=== PATIENT | female | born 1980 | race Caucasian/White ===

== ENCOUNTER 2021-08-23 10:40 | Emergency (ER) | payer BC, OTHER, SELFPAY ==
[2021-08-23 10:47] VITALS: BP 201/123; PULSE 120; RESP 16; TEMP 37; O2SAT 98; BMI 24.1
[2021-08-23 11:50] VITALS: BP 155/87
--- NOTE | 2021-08-23 12:00 | ED.GENADULT ---
HPI - General Adult General Chief complaint: Headache Stated complaint: throbing cramping limbs pain back of head Time Seen by Provider: 08/23/21 11:53 Source: patient Mode of arrival: ambulatory Limitations: no limitations History of Present Illness HPI narrative: 41-year-old female presents to the emergency department with 3 days right-sided neck pain/stiffness, muscle spasms to her right shoulder and right arm and headache. She states it started after she slept in a weird position. She went to urgent care and got diagnosed with muscle spasms was started on cyclobenzaprine 10 mg PO daily which she states didnt help. She states at times she feels like she has a charley horse, and then she feels spasming of the neck, and right arm. She describes her headache as bilateral, tightness, that goes to her neck. She denies nausea, vomiting, vision changes, trauma to the head, chest pain, shortness of breath, abdominal pain. Onset (ago): day(s) (3) Location: head Radiation: non-radiation Severity: moderate Quality: other (tightness) Pain Consistency: constant Relieving factors: none Exacerbating factors: none Associated symptoms: denies other symptoms Treatments prior to arrival: other (cyclobenzaprine 10 mg PO daily ) Related Data Previous Rx's Medication Instructions Recorded diazepam 5 mg tablet (Valium) 5 mg PO BEDTIME PRN #10 tab 08/23/21 naproxen 500 mg tablet 500 mg PO BID #20 tab 08/23/21 Allergies Allergy/AdvReac Type Severity Reaction Status Date / Time No Known Allergies Allergy Unknown Unverified 07/06/20 15:41 Review of Systems Review of Systems: Constitutional : No Weight loss, No Fever, No Chills, No Night Sweats, No Fatigue, No Malaise ENT/Mouth : No Hearing loss, No Ear Pain, No Nasal Congestion, No Sinus Pain, No Hoarseness, No sore throat, No Rhinorrhea, No Swallowing Difficulty Eyes: No Eye Pain, No Swelling, No Redness, No Foreign Body, No Discharge, No Vision Changes Cardiovascular : No Chest Pain, No SOB, No Dyspnea on Exertion, No Orthopnea, No Edema, No Palpitations Respiratory : No Cough, No Sputum, No Wheezing, No Smoke Exposure, No Dyspnea Gastrointestinal : No Nausea, No Vomiting, No Diarrhea, No Constipation, No abdominal Pain, No Hematochezia, No Melena Genitourinary : no irregular bleeding, No Dysuria, No Urinary Frequency, No Hematuria, No Urinary Incontinence, No Urgency, No Flank Pain, No Urinary Flow Changes, No Hesitancy Musculoskeletal : No joint pain, No Myalgias, No Joint Swelling Skin : No Skin Lesions, No rash, + Neck tightness/ muscle spasms Neuro : No Weakness, No Numbness, No Paresthesias, No Loss of Consciousness, No Dizziness, + Headache PMFSH Past Medical History Attestation statement: The following information was validated with the patient. Source: old records reviewed and nursing notes reviewed Social History Social History Advance Directives: No Advance Directives Information Provided: Yes Physical Exam Vital Signs: Vital Signs: Last Vital Signs Temp 98.6 F 08/23/21 10:47 Pulse 120 H 08/23/21 10:47 Resp 16 08/23/21 10:47 BP 155/87 H 08/23/21 11:50 Pulse Ox 98 08/23/21 10:47 Body Mass Index 24.1 vital signs have been reviewed as normal and appeared to be correct. Blood pressure normal. Heart rate normal. Respiration rate normal. Temperature normal. Oxygen saturation normal. Appearance: Alert. Oriented X3. No acute distress. Head: Normal external exam. Normocephalic. Atraumatic. No Romo signs noted. No raccoon eyes noted Eyes: PERRLA. EOMI. Conjunctiva and sclera normal. Eyelids normal. ENT: Pharynx normal. Uvula midline. Moist mucous membranes. No trismus noted. No drooling noted. No muffled voice noted. Neck: Soft full range of motion with pain, no JVD, no cspine tenderness CVS: Heart regular rate and rhythm no murmurs and rubs Respiratory: Breath sounds are clear to auscultation bilaterally. No accessory muscle use noted. Abdomen: Soft nontender no rebound or guarding positive bowel sounds Back: No CVA tenderness. Full range of motion noted. Skin: Skin warm and dry. Normal skin color. Normal skin turgor. No rashes/lesions/lacerations noted. Extremities: No lower extremity edema. Extremities exhibit normal range of motion pain free. Extremities nontender. Neuro: Oriented X 3. No motor deficit. No sensory deficit. Reflexes normal. Medical Decision Making MDM Narrative Medical decision making narrative: 41-year-old female presents to the emergency department with concerns of right-sided neck tightness, spasms her shoulder, and right arm x3 days progressively worsening. She states she was seen in urgent care, was prescribed cyclobenzaprine, and diagnosed with muscle spasms, however, she feels as though this medication has not helped much. She states that this all started after she slept in a weird position. Upon physical examination all extremities exhibit full range of motion, free of pain. Flexion and extension of the neck exhibits full range of motion, slightly painful. No lymphadenopathy. No meningeal signs. Negative Lhermitte sign. Pupils equal round and reactive to light bilaterally. No pain with extraocular movements. Visual biggs by confrontation normal. [id number] normal hand client relations associate strength normal. Gait normal without ataxia. [id number] normal. No focal neuro deficits. No overlying skin changes to extremities. Lungs are clear to auscultation. Normal S1 and S2 free of murmurs. Based on patient history, and physical examination, this is likely neck torticollis. Patient's physical, and history are not consistent with ICH. No focal neuro deficits, her headache is likely a tension-type headache. She reports no red flag symptoms. Patient also denies trauma to the head. Plan at this time is to administer Toradol IM. She will be discharged home on Valium 5 mg MassPat has been reviewed . She has been educated on the diagnosis, she has no questions. She has been encouraged to return to the emergency department with new or worsening symptoms. Discharge Plan Discharge Clinical Impression: Acute torticollis, Muscle spasm of right shoulder Patient Disposition: Home, Self-Care Instructions: Muscle Spasm (ED), Neck Pain (ED) Additional Instructions: Follow-up with your primary care provider Valium is a medication that should help relax her muscles. Start taking cyclobenzaprine. Naproxen as an anti-inflammatory medication as been sent to your pharmacy. Return to the emergency department with new or worsening symptoms. Prescriptions: New diazepam [Valium] 5 mg tablet 5 mg PO BEDTIME PRN (Reason: muscle spasm) Qty: 10 RF: 0 naproxen 500 mg tablet 500 mg PO BID Qty: 20 RF: 0 Referrals: Terrance Stephenson MD [Primary Care Provider] - 2 days Stand Alone Forms: Work/School Release
[2021-08-23] MEDS: Ketorolac Tromethamine 15 MG/ML VIAL 30 MG IM (12:09)
== END 2021-08-23 12:21 | disposition home or self-care (01) ==
PROVIDERS: Emergency Provider Emergency Medicine; PCP Internal Medicine
DX: M43.6 Torticollis (principal); M62.838 Other muscle spasm
CPT/HCPCS: 96372; 99284; J1885

== ENCOUNTER 2021-08-31 16:53 | Outpatient (REF) | payer BC, SELFPAY ==
--- NOTE | ~2021-08-31 | XR_ITS ---
EXAMINATION: XR SHOULDER, RIGHT CLINICAL INFORMATION: Shoulder pain. COMPARISON: None TECHNIQUE: AP external rotation, Grashey, scapular Y, and axillary views of the right shoulder. FINDINGS: The bones and soft tissues are normal. No fracture. Glenohumeral and acromioclavicular alignment is anatomic with normal joint space. No abnormal soft tissue calcifications. XR/XR shoulder RT min 2V IMPRESSION: Normal right shoulder.
--- NOTE | ~2021-08-31 | XR_ITS ---
EXAMINATION: XR CERVICAL SPINE CLINICAL INFORMATION: Right shoulder pain. COMPARISON: None TECHNIQUE: 5 views of the cervical spine were obtained. FINDINGS: There are no prevertebral soft tissue or bony abnormalities demonstrated. No compression fractures or subluxations are identified. Alignment is maintained at the atlanto-axial articulation. The disc spaces are preserved. No endplate changes are seen. The prevertebral soft tissues are normal. The foramina are patent. XR/XR cervical spine 4V IMPRESSION: No acute cervical spinal findings.
== END 2021-08-31 16:54 | disposition home or self-care (01) ==
LOC: HO.XRAY 16:53
PROVIDERS: PCP Internal Medicine; Visit Provider Family Medicine
DX: M25.511 Pain in right shoulder (principal)
CPT/HCPCS: 72050; 73030

== ENCOUNTER 2021-09-03 03:59 | Emergency (ER) | payer BC, OTHER, SELFPAY ==
--- NOTE | ~2021-09-03 | XR_ITS ---
EXAMINATION: XR SHOULDER, RIGHT CLINICAL INFORMATION: Pain COMPARISON: 08/31/2021 TECHNIQUE: Three views of the right shoulder. FINDINGS: No fracture or dislocation. The glenohumeral joint is well aligned. The joint space is maintained. The acromioclavicular joint is intact. The visualized lung is clear. The visualized ribs are intact. XR/XR shoulder RT min 2V IMPRESSION: Normal right shoulder.
--- NOTE | ~2021-09-03 | XR_ITS ---
EXAMINATION: XR CHEST CLINICAL INFORMATION: Pain COMPARISON: None TECHNIQUE: 2 views of the chest were obtained. FINDINGS: The lungs are well expanded. There is no focal consolidation, edema, or effusion. No pneumothorax. The cardiomediastinal silhouette is within normal limits. No acute osseous abnormality. Bilateral nipple piercing. XR/XR chest 2V IMPRESSION: Clear lungs.
[2021-09-03 04:12] VITALS: BP 152/90; PULSE 105; RESP 16; TEMP 36.9; O2SAT 99; BMI 25.4
[2021-09-03] MEDS: Acetaminophen 325 MG TABLET 975 MG PO (05:54)
[2021-09-03] MEDS: Lidocaine 4 % Patch ADH..PATCH 1 PATCH TRANSDERMA (05:55)
[2021-09-03] MEDS: Ketorolac Tromethamine 15 MG/ML VIAL IM (05:57)
--- NOTE | 2021-09-03 06:05 | ED_ITS ---
HPI - Extremity Problem General Chief complaint: Extremity Injury, Upper Stated complaint: SHARP PAIN R SHOULDER DOWN ARM Time Seen by Provider: 09/03/21 04:39 Source: patient Mode of arrival: ambulatory History of Present Illness HPI Narrative: 41-year-old female presents with 2 weeks right shoulder blade and right arm pain that started atraumatically and denies any associated fever, chills, numbness/tingling. Patient states that she is currently under the care of her primary care provider for this and there are plans for a in orthopedic/PT referral, but this evening the pain just became too much. She denies any associated shortness of breath/chest pain/palpitations. Related Data Previous Rx's Medication Instructions Recorded diazepam 5 mg tablet (Valium) 5 mg PO BEDTIME PRN #10 tab 08/23/21 naproxen 500 mg tablet 500 mg PO BID #20 tab 08/23/21 Allergies Allergy/AdvReac Type Severity Reaction Status Date / Time No Known Allergies Allergy Unknown Unverified 07/06/20 15:41 Review of Systems Review of Systems: Pertinent positives and negatives as stated in HPI 10 point review of systems is otherwise negative. [facility] Past Medical History Source: nursing notes reviewed Social History Social History Advance Directives: No Advance Directives Information Provided: No Physical Exam Vital Signs: Vital Signs: Last Vital Signs Temp 98.4 F 09/03/21 04:12 Pulse 105 H 09/03/21 04:12 Resp 16 09/03/21 04:12 BP 152/90 H 09/03/21 04:12 Pulse Ox 99 09/03/21 04:12 Body Mass Index 25.4 VITAL SIGNS: Reviewed. GENERAL: Well developed, well nourished, in no acute distress. HEAD: Normocephalic/atraumatic, EYES: PERRLA, EOMI OROPHARYNX: no oral lesions noted, posterior pharynx clear NECK: Supple, no adenopathy LUNGS: Normal breath sounds. No adventitious sounds or accessory muscle use. SpO2<99> CARDIOVASCULAR: Regular rate and rhythm without noted murmurs ABDOMEN: Soft, non-tender, non-distended with bowel sounds. MUSCULOSKELETAL: No tenderness, deformities, or effusions noted on gross inspection. EXTREMITIES: No cyanosis, clubbing or edema; RIGHT SHOULDER: No deformities noted, there is full range of motion on passive and active, sensation is intact, palpable radial/ulnar pulses SKIN: Inspection of the skin reveals no rashes NEUROLOGIC: Alert and oriented x 4. Strength and sensation to light touch were grossly intact x 4. Course Course Course Narrative: 41-year-old female with history and clinical presentation consistent with muscle strain associated muscle spasm. On review all imaging there are no acute findings and patient was provided with combination analgesics/muscle relaxant/lidocaine patch and otherwise discharged home in stable condition with instructions to follow-up with her primary care provider and pursue further evaluation through Orthopedics and Physical therapy. Discharge Plan Discharge Clinical Impression: Muscle spasm, Muscle strain Patient Disposition: Home, Self-Care Instructions: Muscle Spasm (ED), Muscle Strain (ED) Additional Instructions: 1. Tylenol 1000 mg, orally, every 6 hours as needed for pain control. Do not exceed 4000 mg within 24 hours. You may take this medication in combination with your prescribed diclofenac. 2. Lidocaine patch, these are available [id number] and should be apply to area tenderness as directed on the outside packaging. 3. Follow-up with your primary care provider in the next 1-2 days for re- evaluation and further workup. Return to the ER for acute worsening of symptoms. Prescriptions: No Action diazepam [Valium] 5 mg tablet 5 mg PO BEDTIME PRN (Reason: muscle spasm) Qty: 10 RF: 0 naproxen 500 mg tablet 500 mg PO BID Qty: 20 RF: 0 Referrals: Terrance Stephenson MD [Primary Care Provider] - 2 days
== END 2021-09-03 07:03 | disposition home or self-care (01) ==
PROVIDERS: Emergency Provider Student in an Organized Health Care Education/Training Program; PCP Internal Medicine
DX: S46.911A Strain of unspecified muscle, fascia and tendon at shoulder and upper arm level, right arm, initial encounter (principal); M62.838 Other muscle spasm; X58.XXXA Exposure to other specified factors, initial encounter; Y93.9 Activity, unspecified; Y92.9 Unspecified place or not applicable; Y99.9 Unspecified external cause status
CPT/HCPCS: 71046; 73030; 96372; 99283; 99284; J1885

== ENCOUNTER → 2021-09-28 09:53 | Outpatient (BNVA) | payer BC, SELFPAY | PROVIDERS: PCP Internal Medicine; Visit Provider Physician Assistant ==

== ENCOUNTER 2022-09-12 16:45 | Emergency (ER) | payer BC, SELFPAY ==
--- NOTE | ~2022-09-12 | US_ITS ---
EXAMINATION: US PELVIS CLINICAL INFORMATION: Lower abdominal pain. Question torsion vs. cyst. COMPARISON: CT dated 09/12/2022 TECHNIQUE: Ultrasound of the pelvis is performed using both transabdominal and transvaginal transducers along with color and spectral Doppler assessment of the ovaries. Transvaginal imaging is performed due to inadequate visualization transabdominally. FINDINGS: Uterus: The uterus is retroverted and measures 7.4 x 3.9 x 4.9 cm. Nabothian cysts are identified at the lower uterine segment. The double wall endometrial thickness is approximately 7 mm. IUD is in place. The uterus is smooth in contour and has normal myometrial echogenicity. No visible fibroid. Adnexa: Both ovaries are visualized. There is normal color flow to the adnexa. There is no ovarian torsion. There is no pelvic ascites or fluid collection. Normal arterial and venous waveforms are identified at the ovaries on spectral Doppler. Right ovary measures 3 x 1.9 x 1.9 cm. Left ovary measures 3.8 x 1.1 x 1.9 cm. A simple 1.1 cm ovarian follicle is noted. Prominent periuterine veins are evident in both adnexal regions. US/US pelvic ovarian doppler IMPRESSION: No acute intrapelvic abnormalities. No evidence of ovarian torsion. IUD in place. Prominent bilateral periuterine veins are noted sonographically and correlate with findings seen retrospectively on the recent CT . This appearance raises the possibility of pelvic congestion syndrome provided the appropriate history of pelvic symptoms.
--- NOTE | ~2022-09-12 | US_ITS ---
EXAMINATION: US PELVIS CLINICAL INFORMATION: Lower abdominal pain. Question torsion vs. cyst. COMPARISON: CT dated 09/12/2022 TECHNIQUE: Ultrasound of the pelvis is performed using both transabdominal and transvaginal transducers along with color and spectral Doppler assessment of the ovaries. Transvaginal imaging is performed due to inadequate visualization transabdominally. FINDINGS: Uterus: The uterus is retroverted and measures 7.4 x 3.9 x 4.9 cm. Nabothian cysts are identified at the lower uterine segment. The double wall endometrial thickness is approximately 7 mm. IUD is in place. The uterus is smooth in contour and has normal myometrial echogenicity. No visible fibroid. Adnexa: Both ovaries are visualized. There is normal color flow to the adnexa. There is no ovarian torsion. There is no pelvic ascites or fluid collection. Normal arterial and venous waveforms are identified at the ovaries on spectral Doppler. Right ovary measures 3 x 1.9 x 1.9 cm. Left ovary measures 3.8 x 1.1 x 1.9 cm. A simple 1.1 cm ovarian follicle is noted. Prominent periuterine veins are evident in both adnexal regions. US/US pelvic and transvaginal IMPRESSION: No acute intrapelvic abnormalities. No evidence of ovarian torsion. IUD in place. Prominent bilateral periuterine veins are noted sonographically and correlate with findings seen retrospectively on the recent CT . This appearance raises the possibility of pelvic congestion syndrome provided the appropriate history of pelvic symptoms.
--- NOTE | ~2022-09-12 | CT_ITS ---
EXAMINATION: CT ABDOMEN AND PELVIS WITH CONTRAST CLINICAL INFORMATION: Diffuse abdominal pain with IUD issues COMPARISON: CT abdomen pelvis 09/20/2010 pelvic ultrasound 05/13/2017 TECHNIQUE: Multidetector volumetric images were obtained from the superior aspect of the liver through the pubic symphysis following administration 85 mL of Omnipaque 350 intravenous contrast. Sagittal and coronal reformatted images were obtained on the technologist's workstation. Oral contrast: No This CT examination was performed using dose optimization techniques as appropriate, variously including the following: *Automated exposure control *Adjustment of mA and/or kV according to patient size (this includes techniques or standardized protocols for targeted exams where dose is matched to indication/reason for exam; i.e. extremities or head) *Use of iterative reconstruction technique DLP: 14 mGy-cm FINDINGS: LUNG BASES: The visualized lung bases are unremarkable. LIVER, GALLBLADDER, AND BILIARY TREE: The liver is normal in size, shape, and attenuation. No focal hepatic lesion or biliary ductal dilatation is present. The gallbladder is unremarkable with no evidence of radiopaque gallstones, gallbladder wall thickening, or obvious pericholecystic inflammatory changes. PANCREAS: Unremarkable. SPLEEN: Unremarkable. ADRENAL GLANDS: Unremarkable. KIDNEYS AND URETERS: The kidneys are normal in size, shape, and attenuation. No hydronephrosis, hydroureter, or calculi seen. No perinephric stranding. BLADDER: Unremarkable. GASTROINTESTINAL TRACT: The small and large bowel are unremarkable. The appendix is normal. ABDOMINAL WALL: No significant hernia is appreciated. LYMPH NODES: Normal. VASCULAR: Unremarkable. PELVIC VISCERA: A retroverted uterus is present with an IUD in excellent position. An abnormal adnexal mass is not seen. No free intraperitoneal fluid is present. OSSEOUS STRUCTURES: Unremarkable. CT/CT abdomen pelvis w IV con IMPRESSION: A cause for the patient's abdominal pain has not been found. A retroverted uterus is present with an IUD in excellent position. Fleischner guidelines were followed.
[2022-09-12 16:49] VITALS: BP 188/116; PULSE 144; RESP 18; TEMP 37; O2SAT 99; BMI 26.4
--- NOTE | 2022-09-12 16:59 | ED_ITS ---
HPI - Abdominal Pain General Chief Complaint: Abdominal Pain Stated Complaint: abd pain Time Seen by Provider: 09/12/22 16:54 Source: patient Mode of arrival: ambulatory Limitations: no limitations History of Present Illness HPI narrative: 42-year-old female no significant medical history presents the emergency dep artment with complaints of lower abdominal pain/cramping x2 days. Patient tells me pain started yesterday and has been intermittent in nature ever since. She describes the pain as a strong crampy sensation to her lower abdomen she tells me goes from her left side to her right side. She reports that she has chronically enlarged appendix that is still in place, still has a gallbladder. No history of diverticulitis. Reports any changes in eating habits. Patient tells me she has been able to urinate and defecate without any changes. Patient reports nausea however has not vomited. Patient denies fevers, chills, chest pain, shortness of breath, headache, vision changes, dizziness. To note, patient denies chance of tells me she has an IUD in place that is scheduled to come out soon, she tells me she has been having faint spotting from her IUD however nothing out of the ordinary. Related Data Previous Rx's Medication Instructions Recorded diazepam 5 mg tablet (Valium) 5 mg PO BEDTIME PRN muscle spasm 08/23/21 #10 tabs naproxen 500 mg tablet 500 mg PO BID #20 tabs 08/23/21 cyclobenzaprine 10 mg tablet 10 mg PO BEDTIME PRN muscle spasm 09/12/22 #7 tabs loperamide 2 mg capsule 2 mg PO Q6H PRN loose stool #14 09/12/22 caps ondansetron 4 mg disintegrating 4 mg PO Q6H PRN nausea and 09/12/22 tablet vomiting #14 tabs Allergies Allergy/AdvReac Type Severity Reaction Status Date / Time No Known Allergies Allergy Unknown Unverified 07/06/20 15:41 Review of Systems Review of Systems Constitutional : No Weight loss, No Fever, No Chills, No Fatigue, No Malaise ENT/Mouth : No sore throat, No Rhinorrhea Eyes: No Eye Pain, No Swelling, No Redness Cardiovascular : No Chest Pain, No SOB, No Dyspnea on Exertion, No Orthopnea, No Edema, No Palpitations Respiratory : No Cough, No Sputum, No Wheezing Gastrointestinal : + Nausea, No Vomiting, No Diarrhea, No Constipation, + abdominal Pain, No Hematochezia, No Melena Genitourinary : No Dysuria, No Urinary Frequency, No Hematuria, Musculoskeletal : No joint pain, No Myalgias, No Joint Swelling Skin : No Skin Lesions, No rash Neuro : No Weakness, No Numbness, No Dizziness, No Headache Psych : No Anxiety/Panic, No Depression All other systems reviewed and are negative Yes all other systems are reviewed and are negative [facility] Past Medical History Attestation statement: The following information was validated with the patient. Source: old records reviewed and nursing notes reviewed Medical History Cervical radiculopathy at C5 Social History Social History Alcohol intake: current Alcohol intake frequency: 3 or more drinks per day Alcohol type: wine Patient Tobacco Use Status: Never used Tobacco Smoked in Last 30 Days: Yes Use of substances other than those prescribed or required for medical reasons: No Advance Directives: No Advance Directives Information Provided: No Current occupational status: employed Physical Exam ED Vital Signs: Vital Signs - 24 hr 09/12/22 16:49 09/12/22 17:34 09/12/22 19:28 Temperature 98.6 F Pulse Rate 144 H 107 H 101 H Respiratory Rate 18 20 16 Blood Pressure 188/116 H 134/81 121/81 Pulse Oximetry 99 98 Oxygen Delivery Method Room Air Room Air 09/12/22 20:09 09/12/22 22:39 Temperature 98.9 F Pulse Rate 101 H 82 Respiratory Rate 20 20 Blood Pressure 116/71 96/52 L Pulse Oximetry 96 96 Oxygen Delivery Method Room Air Room Air BMI result Body Mass Index 26.4 vss Appearance: Alert.? Oriented X3.? No acute distress.? Head: Normocephalic, atraumatic, no step-offs or deformities Eyes: Pupils equal, round and reactive to light.? Neck: Normal inspection.? Neck supple.? CVS: Normal heart rate and rhythm.? Pulses normal.? Respiratory: No respiratory distress.? Breath sounds normal.? Abdomen: Soft and + diffusely tender.? Skin: Skin warm and dry.? Normal skin color.? Normal skin turgor.? Extremities: No lower extremity edema.? No calf ttp. 5/5 strength to bilateral upper and lower extremities Neuro: Oriented X 3.? No motor deficit.? No sensory deficit. CN 2-12 intact Course Reevaluation(s) Reevaluation #1: Patient's CBC with leukocytosis likely reactive secondary to nausea, diarrhea. Chemistry with no acute findings requiring intervention. Lipase within normal limits unlikely pancreatitis. Beta hCG negative. Urine clean. COVID negative. CT of the abdomen and pelvis with normal appendix, normal large and small bowels. No acute findings to explain patient's abdominal pain. Retroverted uterus is present with IUD in adequate position. Patient still complaining of pain there for Dilaudid given. Time: 20:43 Reevaluation #2: Discussed results of imaging and laboratory studies with patient. Still complaining of significant pain. At this time patient concerned as she does have history of large ovarian cyst in her pain is mostly in the lower abdomen, will orders pelvic and transvaginal ultrasound with Doppler to rule out ovarian torsion and ovarian cyst. Time: 21:06 Reevaluation #3: Ultrasound with no acute findings. Patient tolerating p.o. without difficulty. She has not had any episodes of diarrhea since in the department. She clarifies she has only had 3 episodes in 1 entire day. Patient tells me she is feeling better however does having crampy abdominal pain. At this time patient will be discharged home. Advised to return with any new or worsening symptoms. Educated her that if symptoms persist she is to follow-up with GI. Patient tolerating p.o. at time of discharge, appears well, hemody namically stable, reports she is still having some pain however significantly improved from initial. At this time patient will be discharged home worrisome signs and symptoms outlined on discharge. Comfortable discharge Time: 22:59 Medications Administered Discontinued Medications Generic Name Dose Route Start Last Admin Trade Name Freq PRN Reason Stop Dose Admin Al Hydroxide/Mg Hydroxide 30 ml 09/12/22 20:23 09/12/22 21:16 Magnesium Hydrox/Alum Hydrox 30 Ml Oral.Susp PO 09/12/22 20:24 30 ml ONCE ONE Administration Belladonna Alkaloids/Phenobarbital 10 ml 09/12/22 20:23 09/12/22 21:17 Phenobarb/Hyoscy/Atropine/Scop 10 Ml Elixir PO 09/12/22 20:24 10 ml ONCE ONE Administration Diphenhydramine HCl 25 mg 09/12/22 20:45 09/12/22 21:28 Diphenhydramine Hcl 25 Mg Capsule PO 09/12/22 20:46 25 mg ONCE ONE Administration Hydromorphone HCl 0.5 mg 09/12/22 19:55 09/12/22 20:10 Hydromorphone Hcl 0.5 Mg/0.5 Ml Syringe IVPUSH 09/12/22 19:56 0.5 mg ONCE ONE Administration Protocol Sodium Chloride 1,000 mls @ 999 mls/hr 09/12/22 17:30 09/12/22 20:12 Ns IV 09/12/22 18:30 Infused .Q1H1M MP Infusion Iohexol 100 ml 09/12/22 19:22 09/12/22 19:23 Iohexol 350 Mg/Ml 100 Ml Infus..Btl IV 09/12/22 19:23 85 ml ONCE ONE Administration Ketorolac Tromethamine 30 mg 09/12/22 17:27 09/12/22 17:46 Ketorolac Tromethamine 15 Mg/Ml Vial IVPUSH 09/12/22 17:28 30 mg ONCE ONE Administration Metoclopramide HCl 10 mg 09/12/22 20:45 09/12/22 21:28 Metoclopramide Hcl 10 Mg/2 Ml Vial IVPUSH 09/12/22 20:46 10 mg ONCE ONE Administration Simethicone 160 mg 09/12/22 17:27 09/12/22 17:46 Simethicone 80 Mg Tab.Chew PO 09/12/22 17:28 160 mg ONCE ONE Administration MDM - Abdominal Pain MDM Narrative Medical decision making narrative: 1700 42 year old female presents lower abdominal cramping, nausea and diarrhea x2 days. PE diffusely tender abdomen. Normoactive bowel sounds. Likely viral or gastroenteritis. Unlikely acute abdomen, diverticulitis, cholecystitis, appendicitis, pancreatitis. Will rule out . Although unlikely. No signs of ovarian torsion, or ectopic. Unlikely that this is C diff. Plan basic labs,, imaging. Medical Records Attestation: I reviewed the patient's medical records. Lab Data Attestation: I reviewed the patient's lab results. Result diagrams: 09/12/22 17:14 09/12/22 17:14 Labs: Lab Results 09/12/22 09/12/22 09/12/22 Range/Units 17:14 17:14 17:14 WBC 17.4 H (4.8-10.8) X10*3/uL RBC 3.90 L (4.20-5.50) X10*6/uL Hgb 12.8 (12.0-16.0) g/dl Hct 37.6 (37.0-47.0) % MCV 96.4 (80.0-98.0) fL MCH 32.8 (27.0-33.0) pg MCHC 34.0 (31.0-35.0) g/dl RDW 11.3 (11.0-16.0) % Plt Count 232 (160-400) X10*3/uL MPV 9.2 L (9.4-12.3) fL Immature Gran % (Auto) 1.0 H (0.0-0.4) % Neut % (Auto) 89.8 H (45-73) % Lymph % (Auto) 4.7 L (20-40) % [place] % (Auto) 4.2 (2-11) % Eos % (Auto) 0.1 (0-4) % Baso % (Auto) 0.2 (0-2) % Lymph # (Auto) 0.8 L (1.2-4.9) X10*3/uL [place] # (Auto) 0.7 (0.1-1.2) X10*3/uL Eos # (Auto) 0.0 (0.0-0.4) X10*3/uL Baso # (Auto) 0.0 (0.0-0.2) X10*3/uL Abs Immat Gran (auto) 0.18 H (0.00-0.03) X10*3/uL Absolute Neuts (auto) 15.6 H (2.0-8.3) x10*3/uL Absolute Nucleated RBC 0.000 (0.0-0.012) X10*3/uL Nucleated RBC % (auto) 0.0 (0.0-0.2) /100WBC Sodium 134 L (135-145) mmol/L Potassium 4.2 (3.3-5.1) mmol/L Chloride 100 (96-108) mmol/L Carbon Dioxide 20 L (22-29) mmol/L Anion Gap 18 (12-20) BUN 7 L (9-16) mg/dL Creatinine 0.65 (0.5-1.4) mg/dL Estim Creat Clear Calc 97.2 Estimated GFR > 60 Random Glucose 117 H (60-115) mg/dL Calcium 9.4 (8.4-10.2) mg/dL Magnesium 1.9 (1.6-2.6) mg/dL Total Bilirubin 0.8 (0.0-1.0) mg/dL AST 15 (5-31) U/L ALT 16 (0-31) U/L Alkaline Phosphatase 100 (39-117) U/L Total Protein 7.7 (6.5-8.0) g/dL Albumin 4.5 (3.5-5.0) g/dL Lipase 10 (8-78) U/L Beta HCG, Quant mIU/mL Urine Color Urine Appearance Urine pH (5.0-9.0) Ur Specific [place] (1.005-1.025) Urine Protein (Neg-Trace) mg/dL Urine Glucose (UA) (Negative) mg/dL Urine Ketones (Negative) mg/dL Urine Blood (Negative) Urine Nitrite (Negative) Ur Leukocyte Esterase (Negative) COVID-19 (SARA) Negative (Negative) COVID-19 Clin Com See Note 09/12/22 09/12/22 Range/Units 17:14 19:28 WBC (4.8-10.8) X10*3/uL RBC (4.20-5.50) X10*6/uL Hgb (12.0-16.0) g/dl Hct (37.0-47.0) % MCV (80.0-98.0) fL MCH (27.0-33.0) pg MCHC (31.0-35.0) g/dl RDW (11.0-16.0) % Plt Count (160-400) X10*3/uL MPV (9.4-12.3) fL Immature Gran % (Auto) (0.0-0.4) % Neut % (Auto) (45-73) % Lymph % (Auto) (20-40) % [place] % (Auto) (2-11) % Eos % (Auto) (0-4) % Baso % (Auto) (0-2) % Lymph # (Auto) (1.2-4.9) X10*3/uL [place] # (Auto) (0.1-1.2) X10*3/uL Eos # (Auto) (0.0-0.4) X10*3/uL Baso # (Auto) (0.0-0.2) X10*3/uL Abs Immat Gran (auto) (0.00-0.03) X10*3/uL Absolute Neuts (auto) (2.0-8.3) x10*3/uL Absolute Nucleated RBC (0.0-0.012) X10*3/uL Nucleated RBC % (auto) (0.0-0.2) /100WBC Sodium (135-145) mmol/L Potassium (3.3-5.1) mmol/L Chloride (96-108) mmol/L Carbon Dioxide (22-29) mmol/L Anion Gap (12-20) BUN (9-16) mg/dL Creatinine (0.5-1.4) mg/dL Estim Creat Clear Calc Estimated GFR Random Glucose (60-115) mg/dL Calcium (8.4-10.2) mg/dL Magnesium (1.6-2.6) mg/dL Total Bilirubin (0.0-1.0) mg/dL AST (5-31) U/L ALT (0-31) U/L Alkaline Phosphatase (39-117) U/L Total Protein (6.5-8.0) g/dL Albumin (3.5-5.0) g/dL Lipase (8-78) U/L Beta HCG, Quant < 2 mIU/mL Urine Color Yellow Urine Appearance Clear Urine pH 5.0 (5.0-9.0) Ur Specific [place] <= 1.005 (1.005-1.025) Urine Protein Negative (Neg-Trace) mg/dL Urine Glucose (UA) Negative (Negative) mg/dL Urine Ketones Trace (Negative) mg/dL Urine Blood Negative (Negative) Urine Nitrite Negative (Negative) Ur Leukocyte Esterase Negative (Negative) COVID-19 (SARA) (Negative) COVID-19 Clin Com Critical Care Time Critical Care Time Critical Care Time: No Discharge Plan Discharge Clinical Impression: Abdominal pain, Nausea, Diarrhea Patient Disposition: Home, Self-Care Instructions: Acute Nausea and Vomiting (ED), Abdominal Pain (ED) Additional Instructions: Take your medications as prescribed. If you were prescribed antibiotics today, it is important that you take your medication to their entirety, do not skip any doses, do not finish them early. Follow-up with your primary care provider this week. If pain persists please follow-up with gastroenterology. Return to the emergency department with new or worsening symptoms. Such as fevers, chills, chest pain, shortness of breath, nausea, vomiting, dizziness, headache, vision changes, lethargy, bloody stool, weakness In case of emergency call 911 CT/CT abdomen pelvis w IV con IMPRESSION: A cause for the patient's abdominal pain has not been found. A retroverted uterus is present with an IUD in excellent position. ? Fleischner guidelines were followed. US/US pelvic ovarian doppler IMPRESSION: No acute intrapelvic abnormalities. No evidence of ovarian torsion. IUD in place. ? Prominent bilateral periuterine veins are noted sonographically and correlate with findings seen retrospectively on the recent CT . This appearance raises the possibility of pelvic congestion syndrome provided the appropriate history of pelvic symptoms. Prescriptions: New ondansetron 4 mg tablet,disintegrating 4 mg PO Q6H PRN (Reason: nausea and vomiting) Qty: 14 0RF loperamide 2 mg capsule 2 mg PO Q6H PRN (Reason: loose stool) Qty: 14 0RF cyclobenzaprine 10 mg tablet 10 mg PO BEDTIME PRN (Reason: muscle spasm) Qty: 7 0RF No Action diazepam [Valium] 5 mg tablet 5 mg PO BEDTIME PRN (Reason: muscle spasm) Qty: 10 0RF naproxen 500 mg tablet 500 mg PO BID Qty: 20 0RF Referrals: Terrance Stephenson MD [Primary Care Provider] - 2 days Stand Alone Forms: Work/School Release
--- OUTSIDE RECORDS SUMMARY | 2022-09-12 17:05 | XMS_ITS | Continuity of Care Document ---
:1980 Author Organization [facility] Address [address] [place] [id number]- Care Team Providers Name Role Phone Nevaeh Gore MD Primary Care Physician Encounter [facility] Date(s): 10/12/20 - 10/12/[address] [address]- Encounter Diagnosis Suspected COVID-19 virus infection (Final) - 10/12/20 Discharge Disposition: A-D/C Home Attending Physician: Azeem Bach MD Admitting Physician: Azeem Bach MD Referring Physician: Not on Staff, Referring MD Allergies, Adverse Reactions, Alerts Substance Reaction Severity Status NKA Active Immunizations Given and Recorded Vaccine Date Status Refusal Reason influenza virus vaccine, inactivated 09/17/10 Given Medications levonorgestrel 1.5 mg oral tablet 1 tablet = 1.5 mg, By Mouth, Once, # 1 tablet, 0 Refills, Soft Stop, 02/18/14 9:57:19, Tablet, 1 tablet By Mouth Once Start Date: 02/18/14 Status: Orderedsertraline 50 mg oral tablet 1 tablet = 50 mg, By Mouth, Daily, # 30 tablet, 3 Refills, Maintenance, Tablet Start Date: 10/29/10 Stop Date: 02/26/11 Status: OrderedTri-Sprintec oral tablet 1 tablet, By Mouth, Daily, # 28 tablet, 11 Refills, Maintenance, Tablet Start Date: 08/11/12 Stop Date: 07/13/13 Status: Ordered Problem List Condition Effective Dates Status Health Status Informant Abnormal cervical Papanicolaou Active smear(Confirmed) Depression(Confirmed) Active Vital Signs Most recent to oldest [Reference Range]: 1 Oxygen Saturation [94-100 %] 99 % (10/12/20 9:05 AM) Pulse Rate [55-90 bpm] 105 bpm *H* (10/12/20 9:05 AM) Blood Pressure [90-138/55-84 mm Hg] 159/84 mm Hg *H* (10/12/20 9:05 AM) Respiratory Rate [16-30 br/min] 18 br/min (10/12/20 9:05 AM) Temperature [96.8-100.4 DegF] 98.6 DegF (10/12/20 9:05 AM) Mode of Delivery (Oxygen) Room air (10/12/20 9:05 AM) Blood pressure sites Arm, right (10/12/20 9:05 AM) Temperature Route Oral (10/12/20 9:05 AM)
--- OUTSIDE RECORDS SUMMARY | 2022-09-12 17:05 | XMS_ITS | Continuity of Care Document ---
:1980 Author Organization [facility] Address [address] [place] [id number]- Care Team Providers Name Role Phone Not on Staff, PCP Primary Care Physician Unavailable Encounter [facility] Date(s): 02/01/21 - 02/01/[address] [address]- Discharge Disposition: A-D/C Home Attending Physician: Danny Garcias MD Admitting Physician: Danny Garcias MD Referring Physician: Not on Staff, Referring [...] Abnormal cervical Papanicolaou Active smear(Confirmed) Depression(Confirmed) Active Results Radiology Reports Exam Date Time Procedure Performing Provider Status 02/01/21 12:46 PM Chest Portable Ekenbarger Gloria L; Auth (Ve rified) Notes:(Chest Portable) Reason For Exam: Shortness of BreathRESULT: Chest Portable Chest Portable Hx of Present Illness: Pt c o cough, SOB, congestion x 8 days, sore throat today; Reason: Shortness of Breath; COMPARISON: None. FINDINGS: LINES AND TUBES: None. LUNGS AND PLEURA: Clear lungs. Normal pulmonary vascularity. No pleural effusion. No pneumothorax. HEART, MEDIASTINUM AND VERONA: Heart is normal in size. Normal upper mediastinal and hilar contour. BONES AND SOFT TISSUES: No acute abnormality. IMPRESSION: No acute abnormality. WSN: [id number] Ordering Physician: Isha Alvarado Dictated By: Lenin Bustamante MD Dictated Date/Time: 02/01/21 12:52 p Reviewed By: Lenin Bustamante MD Signed By: Lenin Bustamante MD Signed Date/Time: 02/01/21 12:52 pm Transcribed By: ALLEN Transcribed Date/Time: 02/01/21 12:48 pm Vital Signs Most recent to oldest [Reference Range]: 1 2 Height 155 cm (02/01/21 11:43 AM) Weight 66 kg (02/01/21 11:43 AM) Oxygen Saturation [94-100 %] 100 % 100 % (02/01/21 11:18 AM) (02/01/21 10:39 AM) Pulse Rate [55-90 bpm] 98 bpm 132 bpm *H* *H* (02/01/21 11:18 AM) (02/01/21 10:39 AM) Blood Pressure [90-138/55-84 mm Hg] 143/89 mm Hg *H* (02/01/21 11:18 AM) Respiratory Rate [16-30 br/min] 16 br/min (02/01/21 11:18 AM) Temperature [96.8-100.4 DegF] 98.7 DegF (02/01/21 11:18 AM) Mode of Delivery (Oxygen) Room air Room air (02/01/21 11:18 AM) (02/01/21 10:39 AM) Blood pressure sites Arm, left (02/01/21 11:18 AM) Temperature Route Oral (02/01/21 11:18 AM) Dry Weight 66 kg (02/01/21 11:43 AM) Weight Obtained Via Patient/family stated (02/01/21 11:43 AM) Dry Weight Obtained Via Patient/family stated (02/01/21 11:43 AM)
[2022-09-12 17:19] LABS: MANUAL DIFF FLAG NO
[2022-09-12 17:28] LABS: Basophils Percent Auto 0.2 % (0-2); Eosinophils Percent Auto 0.1 % (0-4); Hematocrit 37.6 % (37.0-47.0); Hemoglobin 12.8 g/dl (12.0-16.0); Imm Gran Abs Auto 0.18 X10*3/uL (0.00-0.03); Lymphocytes Absolute Auto 0.8 X10*3/uL (1.2-4.9); Lymphocytes Percent Auto 4.7 % (20-40); Mean Corpuscular Hemoglobin 32.8 pg (27.0-33.0); Mean Corpuscular Volume 96.4 fL (80.0-98.0); Mean Platelet Volume 9.2 fL (9.4-12.3); Monocytes Absolute Auto 0.7 X10*3/uL (0.1-1.2); Monocytes Percent Auto 4.2 % (2-11); Neutrophils Absolute Auto 15.6 x10*3/uL (2.0-8.3); Neutrophils Percent Auto 89.8 % (45-73); Platelet Count 232 X10*3/uL (160-400); Red Cell Distribution Width 11.3 % (11.0-16.0); White Blood Count 17.4 X10*3/uL (4.8-10.8)
[2022-09-12 17:32] LABS: COVID-19 Test Negative (Negative); IDNOW Serial# 16C4AD1C
[2022-09-12 17:34] VITALS: BP 134/81; PULSE 107; RESP 20; O2SAT 98
[2022-09-12 17:37] LABS: Alanine Aminotransferase 16 U/L (0-31); Albumin Level 4.5 g/dL (3.5-5.0); Alkaline Phosphatase 100 U/L (39-117); Anion Gap 18 (12-20); Aspartate Amino Transferase 15 U/L (5-31); Bilirubin Total 0.8 mg/dL (0.0-1.0); Blood Urea Nitrogen 7 mg/dL (9-16); Calcium 9.4 mg/dL (8.4-10.2); Carbon Dioxide 20 mmol/L (22-29); Chloride 100 mmol/L (96-108); Creatinine Clr Calc Pharmacy 97.2; Estimated Glomerular Filt Rate > 60; Glucose Random 117 mg/dL (60-115); Lipase 10 U/L (8-78); Magnesium 1.9 mg/dL (1.6-2.6); Potassium 4.2 mmol/L (3.3-5.1); Sodium 134 mmol/L (135-145); Total Protein 7.7 g/dL (6.5-8.0)
[2022-09-12 17:46] LABS: HCG Quantitative < 2 mIU/mL
[2022-09-12] MEDS: 0.9 % Sodium Chloride 1,000 ML 999 ML IV (17:46)
[2022-09-12] MEDS: Ketorolac Tromethamine 15 MG/ML VIAL 30 MG IVPUSH (17:46)
[2022-09-12] MEDS: Simethicone 80 MG TAB.CHEW 160 MG PO (17:46)
[2022-09-12] MEDS: iohexoL 350 MG/ML 100 ML INFUS..BTL IV (19:23)
[2022-09-12 19:28] VITALS: BP 121/81; PULSE 101; RESP 16
--- NOTE | 2022-09-12 19:28 | PC.NURSE ---
pt reports feeling a little better, pain at about 3/10 at this time,
[2022-09-12 19:35] LABS: Appearance Urine Clear; Color Urine Yellow; Glucose Urine UA Negative (Negative); Leukocyte Esterase Urine Negative (Negative); Nitrite Urine Negative (Negative); Specific Gravity - Urine <= 1.005 (1.005-1.025); Urine Blood Negative (Negative); Urine Ketones Trace mg/dL (Negative); Urine Protein Negative (Neg-Trace)
[2022-09-12 20:09] VITALS: BP 116/71; PULSE 101; RESP 20; O2SAT 96
[2022-09-12] MEDS: HYDROmorphone HCl 0.5 MG/0.5 ML SYRINGE IVPUSH (20:10)
[2022-09-12] MEDS: Magnesium Hydrox/Alum Hydrox 30 ML ORAL.SUSP PO (21:16)
[2022-09-12] MEDS: PHENobarb/Hyoscy/Atropine/Scop 10 ML ELIXIR PO (21:17)
[2022-09-12] MEDS: Metoclopramide HCl 10 MG/2 ML VIAL IVPUSH (21:28)
[2022-09-12] MEDS: diphenhydrAMINE HCL 25 MG CAPSULE PO (21:28)
[2022-09-12 22:39] VITALS: BP 96/52; PULSE 82; RESP 20; TEMP 37.2; O2SAT 96
[2022-09-12] MEDS: Cyclobenzaprine HCl 10 MG TABLET PO (23:40)
== END 2022-09-12 23:45 | disposition home or self-care (01) ==
PROVIDERS: Physician Assistant; Emergency Provider Emergency Medicine; PCP Internal Medicine
DX: R10.9 Unspecified abdominal pain (principal); R11.0 Nausea; R19.7 Diarrhea, unspecified; Z20.822 Contact with and (suspected) exposure to COVID-19
CPT/HCPCS: 36415; 74177; 76830; 76856; 80053; 81003; 83690; 83735; 84702; 85025; 87635; 93975; 96361; 96374; 96375; 99284; 99285; J1170; J1885; J2765; Q9967

== ENCOUNTER 2023-10-31 17:37 | Outpatient (REF) | payer BC, MEDICAID, SELFPAY ==
[2023-10-31 18:30] LABS: Influenza A PCR NEGATIVE (Negative); Influenza B PCR NEGATIVE (Negative); Resp Syncy Virus RNA Qual PCR NEGATIVE (Negative); SARS COV2 PCR INHOUSE NEGATIVE (Negative)
== END 2023-10-31 17:38 | disposition home or self-care (01) ==
LOC: HO.LNP 17:37
PROVIDERS: Visit Provider Family Medicine
DX: J06.9 Acute upper respiratory infection, unspecified (principal)
CPT/HCPCS: 0241U; 87070; 87147

== ENCOUNTER 2024-06-15 22:37 | Emergency (ER) | payer BC, SELFPAY ==
[2024-06-15 22:44] VITALS: BP 134/90; PULSE 116; RESP 16; TEMP 36.8; O2SAT 96; BMI 25.3
--- OUTSIDE RECORDS SUMMARY | 2024-06-15 23:24 | XMS_ITS | Continuity of Care Document ---
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 Phone Not on Staff, PCP Primary Care Physician Unavail able Encounter [facility] Date(s): 09/16/22 - 09/17/[address] [address]- Encounter Diagnosis Bacterial vaginitis(Final) - 09/17/22 Discharge Disposition: A-D/C Home Attending Physician: Matthew Diaz MD Admitting Physician: Matthew Diaz MD Referring Physician: Not on Staff, Referring MD Allergies, Adverse Reactions, Alerts No Known Allergies Immunizations Given and Recorded Vaccine Date Status Refusal Reason influenza virus vaccine, inactivated 09/17/10 Give n Medications levonorgestrel 1.5 mg oral tablet 1 tablet = 1.5 mg, By Mouth, Once, # 1 tablet, 0 Refills, Soft Stop, 02/18/14 9:57:19, Tablet, 1 tablet By Mouth Once Start Date: 02/18/14 Status: Ordered metroNIDAZOLE 500 mg oral tablet 1 tablet = 500 mg, By Mouth, Every 12 hours, for 7 days, # 14 tablet, 0 Refills, Acute 09/24/22 23:21:00 EST, 09/17/22 23:21:00 EST, Tablet, [facility]/pharm[facility] #[id number], Partial fill upon patient request if the prescription is for a schedule II opioid drug., 1... Start Date: 09/17/22 Stop Date: 09/24/22 Status: Ordered sertraline 50 mg oral tablet 1 tablet = 50 mg, By Mouth, Daily, # 30 tablet, 3 Refills, Maintenance, Tablet Start Date: 10/29/10 Stop Date: 02/26/11 Status: Ordered Tri-Sprintec oral tablet 1 tablet, By Mouth, Daily, # 28 tablet, 11 Refills, Maintenance, Tablet Start Date: 08/11/12 Stop Date: 07/13/13 Status: Ordered Problem List Condition Confirmation Course Effective Dates Status Health St atus Informant Abnormal cervical Papanicolaou smear Confirmed Active Depression Confirmed Active Results Orders for Microbiology Reports Name Date Wet Prep 09/17/22 Microbiology Reports TEST:Wet Prep STATUS:Auth (Verified) BODY SITE: SOURCE:VAGINA COLLECTED DATE/TIME:09/17/22 6:00 PM Wet Prep SPECIMEN DESCRIPTION : VAGINAL SPECIMEN SPECIAL REQUESTS : NONE DIRECT EXAM : 1+ WHITE BLOOD CELLS 1+ CLUE CELLS NO YEAST OBSERVED NO TRICHOMONAS OBSERVED REPORT STATUS : FINAL 09/17/2022 Radiology Reports * Exam Date Time Procedure Performing Provider Status 09/17/22 6:31 PM US Pelvic Transvaginal Diane Estes; Auth (Verified) Notes: (US Pelvic Transvaginal) Reason For Exam: Pelvic Pain;Other: RESULT: US Pelvic Transvaginal US Pelvic Transabdominal, US Pelvic Doppler Comp, US Pelvic Transvaginal Hx of Present Illness: pt states abd pain sine was seen at [facility] told to follow up with gastro pt staes increased right lower quad pain radiates to left side states burning sensation 8 10 pain; Reason: Other:; Pelvic Pain; Clinical Question(s): TOA; Order Comment: COMPARISON: CT abdomen and pelvis from earlier today. TECHNIQUE: Transabdominal and transvaginal pelvic ultrasound with grayscale, color Doppler, and spectral Doppler analysis. FINDINGS: UTERUS: Size: 8.1 x 4.4 x 6.7 cm, volume 125.7 cc. Endometrial thickness: 0.3 cm. Morphology: Normal retroverted configuration and echotexture. There is an IUD in position. Otherwise unremarkable ultrasound of the uterus. RIGHT OVARY: Size: 2.7 x 1.7 x 1.7 cm, volume 4.3 cc. Morphology: Normal echotexture with normal appearing follicles. No pathologic cysts or mass. Normalarterial and venous waveforms. LEFT OVARY: Size: 2.5 x 1.5 x 3.0 cm, volume 6.0 cc. Morphology: Normal echotexture with normal-appearing follicles. There is a corpus luteum cyst. No pathologic cysts or mass. Normal arterial and venous waveforms. ADNEXA: Normal. No adnexal masses or fluid collections. VAGINA: Partially obscured by the bowel gas. IMPRESSION: No evidence of acute ovarian abnormality. Of note, at the end of the examination, there was fecal material on the transvaginal ultrasound probe supporting the findings on the CT scan which are concerning for a rectovaginal fistula. MRI with contrast may be the best examination to identify site of fistula. I have personally reviewed the images and I agree with this report. WSN: [id number] Ordering Physician: Luda Erickson Dictated By: Silvana Aaron MD Dictated Date/Time: 09/17/22 7:08 pm Reviewed By: Fausto Isaacs MD Signed By: Fausto Isaacs MD Signed Date/Time: 09/17/22 7:13 pm Transcribed By: ALLEN Transcribed Date/Time: 09/17/22 7:03 pm * Exam Date Time Procedure Performing Provider Status 09/17/22 6:31 PM US Pelvic Doppler Comp Diane Estes; Auth (Verified) Notes: (US Pelvic Doppler Comp) Reason For Exam: Pelvic Pain;Other: RESULT: US Pelvic Doppler Comp US Pelvic Transabdominal, US Pelvic Doppler Comp, US Pelvic Transvaginal Hx of Present Illness: pt states abd pain sine was seen at [facility] told to follow up with gastro pt staes increased right lower quad pain radiates to left side states burning sensation 8 10 pain; Reason: Other:; Pelvic Pain; Clinical Question(s): TOA; Order Comment: COMPARISON: CT abdomen and pelvis from earlier today. TECHNIQUE: Transabdominal and transvaginal pelvic ultrasound with grayscale, color Doppler, and spectral Doppler analysis. FINDINGS: UTERUS: Size: 8.1 x 4.4 x 6.7 cm, volume 125.7 cc. Endometrial thickness: 0.3 cm. Morphology: Normal retroverted configuration and echotexture. There is an IUD in position. Otherwise unremarkable ultrasound of the uterus. RIGHT OVARY: Size: 2.7 x 1.7 x 1.7 cm, volume 4.3 cc. Morphology: Normal echotexture with normal appearing follicles. No pathologic cysts or mass. Normalarterial and venous waveforms. LEFT OVARY: Size: 2.5 x 1.5 x 3.0 cm, volume 6.0 cc. Morphology: Normal echotexture with normal-appearing follicles. There is a corpus luteum cyst. No pathologic cysts or mass. Normal arterial and venous waveforms. ADNEXA: Normal. No adnexal masses or fluid collections. VAGINA: Partially obscured by the bowel gas. IMPRESSION: No evidence of acute ovarian abnormality. Of note, at the end of the examination, there was fecal material on the transvaginal ultrasound probe supporting the findings on the CT scan which are concerning for a rectovaginal fistula. MRI with contrast may be the best examination to identify site of fistula. I have personally reviewed the images and I agree with this report. WSN: [id number] Ordering Physician: Luda Erickson Dictated By: Silvana Aaron MD Dictated Date/Time: 09/17/22 7:08 pm Reviewed By: Fausto Isaacs MD Signed By: Fausto Isaacs MD Signed Date/Time: 09/17/22 7:13 pm Transcribed By: ALLEN Transcribed Date/Time: 09/17/22 7:03 pm * Exam Date Time Procedure Performing Provider Status 09/17/22 6:31 PM US Pelvic Transabdominal Anthony Estes; Auth (Verified) Notes: (US Pelvic Transabdominal) Reason For Exam: Pelvic Pain;Other: RESULT: US Pelvic Transabdominal US Pelvic Transabdominal, US Pelvic Doppler Comp, US Pelvic Transvaginal Hx of Present Illness: pt states abd pain sine was seen at [facility] told to follow up with gastro pt staes increased right lower quad pain radiates to left side states burning sensation 8 10 pain; Reason: Other:; Pelvic Pain; Clinical Question(s): TOA; Order Comment: COMPARISON: CT abdomen and pelvis from earlier today. TECHNIQUE: Transabdominal and transvaginal pelvic ultrasound with grayscale, color Doppler, and spectral Doppler analysis. FINDINGS: UTERUS: Size: 8.1 x 4.4 x 6.7 cm, volume 125.7 cc. Endometrial thickness: 0.3 cm. Morphology: Normal retroverted configuration and echotexture. There is an IUD in position. Otherwise unremarkable ultrasound of the uterus. RIGHT OVARY: Size: 2.7 x 1.7 x 1.7 cm, volume 4.3 cc. Morphology: Normal echotexture with normal appearing follicles. No pathologic cysts or mass. Normalarterial and venous waveforms. LEFT OVARY: Size: 2.5 x 1.5 x 3.0 cm, volume 6.0 cc. Morphology: Normal echotexture with normal-appearing follicles. There is a corpus luteum cyst. No pathologic cysts or mass. Normal arterial and venous waveforms. ADNEXA: Normal. No adnexal masses or fluid collections. VAGINA: Partially obscured by the bowel gas. IMPRESSION: No evidence of acute ovarian abnormality. Of note, at the end of the examination, there was fecal material on the transvaginal ultrasound probe supporting the findings on the CT scan which are concerning for a rectovaginal fistula. MRI with contrast may be the best examination to identify site of fistula. I have personally reviewed the images and I agree with this report. WSN: [id number] Ordering Physician: Luda Erickson Dictated By: Silvana Aaron MD Dictated Date/Time: 09/17/22 7:08 pm Reviewed By: Fausto Isaacs MD Signed By: Fausto Isaacs MD Signed Date/Time: 09/17/22 7:13 pm Transcribed By: ALLEN Transcribed Date/Time: 09/17/22 7:03 pm * Exam Date Time Procedure Performing Provider Status 09/17/22 12:[address] Abd/Pelvis W/ IV Contrast Only Cecilia Lux (Verified) Notes: (CT Abd/Pelvis W/ IV Contrast Only) Reason For Exam: RLQ abdominal pain;Other: RESULT: CT Abd/Pelvis W/ IV Contrast Only CT Abd/Pelvis W/ IV Contrast Only Hx of Present Illness: pt states abd pain sine was seen at [facility] told to follow up with gastro pt staes increased right lower quad pain radiates to left side states burning sensation 8 10 pain; Reason: Other:; RLQ abdominal pain; Clinical Question(s): Appendicitis; Order Comment: TECHNIQUE: Spiral CT through the abdomen and pelvis with IV contrast formatted in 3 planes. 75 cc of Omnipaque 300 was administered intravenously. This study was performed without oral contrast. Weight-based protocol using automatic tube modulation was used to optimize exposure parameters. CTDIvol Body: 6.56 mGy, DLP Body: 342 mGy*cm. COMPARISON: CT of the abdomen and pelvis dated April 02, 2011. FINDINGS: Director Property View Findings, Lines and Tubes: None. Visualized Chest: Atelectasis at the lung bases. No pleural or pericardial effusion. Diaphragm: Normal. Liver: Normal. Gallbladder: Mildly distended gallbladder without definite wall thickening or evidence of acute cholecystitis. Bile ducts: No biliary ductal dilation. Spleen: Normal. Pancreas: Normal. Adrenal glands: Normal. Kidneys and ureters: No hydronephrosis, stones, or suspicious masses. Bladder: Underdistended but otherwise unremarkable. Reproductive organs: Retroverted uterus containing a well-positioned IUD. No suspicious adnexal abnormality. Upper vaginal vault is partially distended with mixed attenuation material. Stomach, small bowel, and large bowel: The stomach is decompressed, limiting assessment, Small bowel loops are normal in course and caliber without evidence of obstruction. Moderate stool burden in the cecum and ascending colon. Change in caliber at the mid transverse colon with distal gaseous distention of the splenic flexure and proximal portions of the descending colon with another abrupt transition at the mid descending colon. Sigmoid colon is largely decompressed. No mesenteric twisting orfrank inflammatory changes are identified. Mild wall thickening of the low rectum, which may be dueto partial distention (series 6 image 157). Appendix: Normal. Peritoneum and retroperitoneum: No ascites or pneumoperitoneum. No omental or mesenteric lesions. Lymph nodes: No enlarged lymph nodes. Blood vessels: Normal. No aneurysm. No evidence of venous thrombosis. Compression of the left renalvein between the aorta and SMA with asymmetric prominence of the left gonadal vein (uterine veins, nonspecific anatomic findings that can be seen in the setting of nutcracker syndrome and/or pelvic co ngestion syndrome. Abdominal and pelvic wall: Unremarkable. Bones: Mildly displaced fractures of the left transverse processes of L3 and L4. IMPRESSION: 1. No definite acute process to explain right lower quadrant pain. 2. Moderate to large stool burden in the proximal colon with gaseous distention of the mid colon and somewhat abrupt caliber changes but no evidence for obstruction, volvulus, or reactive bowel changes and with the most substantial gaseous distention in the left upper quadrant. Given the caliber change in the mid transverse colon, correlation with colonoscopy is recommended on a nonemergent basis, if not performed recently. 3. Mixed attenuation material within the upper vaginal canal, suggestive of stool by CT. Correlation with symptoms and exogenous material is recommended to exclude colovaginal fistula. 4. Compression of the left renal vein and prominent left gonadal vein, nonspecific anatomic findings that can be seen in the setting of nutcracker syndrome and pelvic congestion syndrome, respectively. The impression above was relayed to Angelique Rosenthal MD by Dr. Manfred Kong over the phone on 09/17/2022 1:40 PM. WSN: [id number] Ordering Physician: Angelique Rosenthal Dictated By: Manfred Kong MD Dictated Date/Time: 09/17/22 1:43 pm Reviewed By: Manfred Kong MD Signed By: Manfred Kong MD Signed Date/Time: 09/17/22 1:43 pm Transcribed By: ALLEN Transcribed Date/Time: 09/17/22 1:02 pm Vital Signs Most recent to oldest [Reference Range]: 1 2 3 Oxygen Saturation [94-100 %] 99 % (09/17/22 10:44 PM) 98 % (09/17/22 8:18 PM) 98 % (09/17/22 6:54 PM) Pulse Rate [55-90 bpm] 96 bpm *H* (09/17/22 10:44 PM) 89 bpm (09/17/22 8:18 PM) 93 bpm *H* (09/17/22 6:54 PM) Blood Pressure [90-138/55-84 mm Hg] 134/84mm Hg (09/17/22 10:44 PM) 115/80mm Hg (09/17/22 8:18 PM) 114/81mm Hg (09/17/22 6:54 PM) Respiratory Rate [16-30 br/min] 18 br/min (09/17/22 10:44 PM) 18 br/min (09/17/22 8:18 PM) 16 br/min (09/17/22 6:54 PM) Temperature [96.8-100.4 DegF] 99.0 DegF (09/17/22 10:44 PM) 98.3 DegF (09/17/22 8:18 PM) 98.4 DegF (09/17/22 6:54 PM) Mode of Delivery (Oxygen) Room air (09/17/22 10:44 PM) Room air (09/17/22 8:18 PM) Room air (09/17/22 6:54 PM) Blood pressure sites Arm, right (09/17/22 10:44 PM) Arm, right (09/17/22 8:18 PM) Arm, right (09/17/22 6:54 PM) Temperature Route Oral (09/17/22 10:44 PM) Oral (09/17/22 8:18 PM) Oral (09/17/22 6:54 PM) EKG study * Event Display: ECG 12-Lead Authored Date: Please click on pdf link to open report * Event Display: ECG 12-Lead Authored Date: Ventricular Rate: 102 BPM Atrial Rate: 102 BPM P-R Interval: 130 ms QRS Duration: 88 ms Q-T Interval: 330 ms QTC Calculation(Bazett): 430 ms P Corinth: 65 degrees R Corinth: 54 degrees T Corinth: 14 degrees Sinus tachycardia Possible Left atrial enlargement Borderline ECG Confirmed by LEILA EVANS ([id number]) on 09/17/2022 11:31:17 AM Fenton: LEILA EVANS Note * Luda Erickson NP: PERFORM Event Display: Patient Education Leaflets Authored Date: [id number] Bacterial Vaginosis ?? [id number] Bacterial Vaginosis You have a vaginal infection called bacterial vaginosis (BV). Both good and bad bacteria are present in a healthy vagina. BV occurs when these bacteria get out of balance. The number of bad bacteria increase. And the number of good bacteria decrease. BV is linked with sexual activity, but it's not a sexually transmitted infection (STI). BV may or may not cause symptoms. If symptoms do occur, they can include: ??? Thin, baird, milky-white, or sometimes green discharge ??? Unpleasant odor or ???fishy?? smell ??? Itching, burning, or pain in or around the vagina It's not known what causes BV, but certain factors can make the problem more likely. These can include: ??? Douching ??? Spermicides ??? Use of antibiotics ??? Change in hormone levels with , , or menopause ??? Having sex with a new partner ??? Having sex with more than one partner BV will sometimes go away on its own. But treatment is often advised. This is because untreated BV can raise the risk of more serious health problems, such as: ??? Pelvic inflammatory disease (PID) ??? delivery (giving to a baby early if you???re ) ??? HIV and some other sexually transmitted infections (STIs) ??? Infection after surgery on the reproductive organs Home care General care ??? BV is most often treated with medicines called antibiotics. These may be given as pills or as avaginal cream.??If antibiotics are prescribed, be sure to use them exactly as directed. And complete all of the medicine, even if your symptoms go away. ??? Don't douche or have sex during treatment.??? If you have sex with a female partner, ask your healthcare provider if she should also be treated. Prevention ??? Don't douche. ??? Don't have sex. If you do have sex, take steps to lower your risk:o Use condoms when having sex. o Limit the number of sex partners you have. ?? Follow-up care Follow up with your healthcare provider, or as advised. ?? When to get medical advice Call your healthcare provider right away if any of the following occur: ??? You have a fever of??100.4??F (38??C)??or higher, or as directed by your healthcare provider. ??? Your symptoms get worse, or they don???t go away within a few days of starting treatment. ??? You have new pain in the lower belly??or pelvic region. ??? You have side effects that bother you or a reaction to the pills or cream you???re prescribed. ??? You or any of your sex partners have new symptoms, such as a rash, jointpain, or sores. ?? Last Reviewed Date: 2022 ?? The [employer]. All rights reserved. This information is not intended as a substitute for professional medical care. Always follow your healthcare professional's instructions. ?? * Luda Erickson NP: PERFORM Event Display: Patient Education Leaflets Authored Date: [id number] Anal Fistula ?? [id number] Anal Fistula The anal canal is the end portion of the intestinal tract. It includes the rectum and anus. Sometimes, an abnormal passage forms from the anal canal to the skin near the anus. This is called an anal fistula. Anal fistulas can also form from the anal canal to other organs, such as the vagina or urinary tract. An anal fistula most often occurs from an anal gland that has developed a pus- filled infection (abscess). A fistula can also occur with certain conditions, such as Crohn???s disease or after radiation therapy for cancer. Injury to the anal canal and surgery can also lead to anal fistulas. Symptoms of an anal fistula can include: ??? Pain in or near the rectum ??? Drainage, which may contain blood, pus, or both (the drainage may be constant or stop and start again) ??? Bleeding from the rectum ??? Urinary problems If you have an anal abscess or infection along with a fistula, you may also notice redness, swelling, or soreness in or near the anus or rectum. You may have a fever as well. The abscess usually needs to be drained. If caused by Crohn???s disease, an anal fistula may respond to medicines such as antibiotics and immunosuppressants. This may lead to complete closure of the fistula. But once treatment stops, there is a high chance that the fistula may form again. Anal fistulas often require surgery if other treatments don???t correct the problem. The type of surgery depends on the type of fistula and the cause of the fistula. More than one surgery may be required. Please discuss all forms of treatment with your healthcare provider. Home care As you recover from treatment, make sure to take any prescribed medicines as directed. Don't take any vege-hwb-inklleh medicines without first talking to your healthcare provider. You may also be advised to: ??? Soak in a warm bath 3 or 4 times a day. ??? Wear a pad over your anal area as directed. ??? Eat a diet high in fiber. ??? Drink plenty of fluids. ??? Use a stool softener or bulk laxative as needed. ??? Return to your normal routine only after your healthcare provider says it's OK. ?? Follow-up care Follow up with your healthcare provider, or as advised. ?? When to seek medical advice Call your healthcare provider right away if any of these occur: ??? Fever of 100.4??F (38??C) or higher, or as directed by your healthcare provider ??? Hard or painful stools or trouble controlling your bowel movements ??? Symptoms of the anal fistula return, like pain or drainage ??? Increased pain, redness, swelling, or drainage in or near the anus or rectum ??? Mucus, pus, or blood in the stool (dark or bright red) ??? Pain in the belly that does not respond to treatment or that does not go away after a few hours ??? Swelling in the belly that does not go away after a few hours ??? Vomiting that won???t stop ??? Symptoms get worse or you have new symptoms ?? To learn more The resources below can help you learn more about anal fistulas. They may also help you find support if you have conditions such as Crohn???s disease. ??? [place] [employer], www.fascrs.org/patients ??? Crohn???s and Col[employer] of [place], www.ccfa.org ?? Last Reviewed Date: 2021 ?? 9793-7561 The [employer]. All rights reserved. This information is not intended as a substitute for professional medical care. Always follow your healthcare professional's instructions. ?? * [facility] , CIS S: TRANSCRILISANDRO Isaacs MD, Fausto S: VERIFY Galen BARNES, Silvana Santizo: SIGN Event Display: Result: Authored Date: [id number] US Pelvic Transabdominal, US Pelvic Doppler Comp, US Pelvic Transvaginal Hx of Present Illness: pt states abd pain sine was seen at [facility] told to follow up with gastro pt staes increased right lower quad pain radiates to left side states burning sensation 8 10 pain; Reason: Other:; Pelvic Pain; Clinical Question(s): TOA; Order Comment: COMPARISON: CT abdomen and pelvis from earlier today. TECHNIQUE: Transabdominal and transvaginal pelvic ultrasound with grayscale, color Doppler, and spectral Doppler analysis. FINDINGS: UTERUS: Size: 8.1 x 4.4 x 6.7 cm, volume 125.7 cc. Endometrial thickness: 0.3 cm. Morphology: Normal retroverted configuration and echotexture. There is an IUD in position. Otherwise unremarkable ultrasound of the uterus. RIGHT OVARY: Size: 2.7 x 1.7 x 1.7 cm, volume 4.3 cc. Morphology: Normal echotexture with normal appearing follicles. No pathologic cysts or mass. Normalarterial and venous waveforms. LEFT OVARY: Size: 2.5 x 1.5 x 3.0 cm, volume 6.0 cc. Morphology: Normal echotexture with normal-appearing follicles. There is a corpus luteum cyst. No pathologic cysts or mass. Normal arterial and venous waveforms. ADNEXA: Normal. No adnexal masses or fluid collections. VAGINA: Partially obscured by the bowel gas. IMPRESSION: No evidence of acute ovarian abnormality. Of note, at the end of the examination, there was fecal material on the transvaginal ultrasound probe supporting the findings on the CT scan which are concerning for a rectovaginal fistula. MRI with contrast may be the best examination to identify site of fistula. I have personally reviewed the images and I agree with this report. WSN: [id number] Ordering Physician: Luda Erickson Dictated By: Silvana Aaron MD Dictated Date/Time: 09/17/22 7:08 pm Reviewed By: Fausto Isaacs MD Signed By: Fausto Isaacs MD Signed Date/Time: 09/17/22 7:13 pm Transcribed By: ALLEN Transcribed Date/Time: 09/17/22 7:[address] Abdomen and Pelvis W contrast IV * [facility] , CIS S: Manfred Bowling MD J: VERIFY Event Display: Result: Authored Date: [id number] CT Abd/Pelvis W/ IV Contrast Only Hx of Present Illness: pt states abd pain sine was seen at [facility] told to follow up with gastro pt staes increased right lower quad pain radiates to left side states burning sensation 8 10 pain; Reason: Other:; RLQ abdominal pain; Clinical Question(s): Appendicitis; Order Comment: TECHNIQUE: Spiral CT through the abdomen and pelvis with IV contrast formatted in 3 planes. 75 cc of Omnipaque 300 was administered intravenously. This study was performed without oral contrast. Weight-based protocol using automatic tube modulation was used to optimize exposure parameters. CTDIvol Body: 6.56 mGy, DLP Body: 342 mGy*cm. COMPARISON: CT of the abdomen and pelvis dated April 02, 2011. FINDINGS: Director Property View Findings, Lines and Tubes: None. Visualized Chest: Atelectasis at the lung bases. No pleural or pericardial effusion. Diaphragm: Normal. Liver: Normal. Gallbladder: Mildly distended gallbladder without definite wall thickening or evidence of acute cholecystitis. Bile ducts: No biliary ductal dilation. Spleen: Normal. Pancreas: Normal. Adrenal glands: Normal. Kidneys and ureters: No hydronephrosis, stones, or suspicious masses. Bladder: Underdistended but otherwise unremarkable. Reproductive organs: Retroverted uterus containing a well-positioned IUD. No suspicious adnexal abnormality. Upper vaginal vault is partially distended with mixed attenuation material. Stomach, small bowel, and large bowel: The stomach is decompressed, limiting assessment, Small bowel loops are normal in course and caliber without evidence of obstruction. Moderate stool burden in the cecum and ascending colon. Change in caliber at the mid transverse colon with distal gaseous distention of the splenic flexure and proximal portions of the descending colon with another abrupt transition at the mid descending colon. Sigmoid colon is largely decompressed. No mesenteric twisting orfrank inflammatory changes are identified. Mild wall thickening of the low rectum, which may be dueto partial distention (series 6 image 157). Appendix: Normal. Peritoneum and retroperitoneum: No ascites or pneumoperitoneum. No omental or mesenteric lesions. Lymph nodes: No enlarged lymph nodes. Blood vessels: Normal. No aneurysm. No evidence of venous thrombosis. Compression of the left renalvein between the aorta and SMA with asymmetric prominence of the left gonadal vein (uterine veins, nonspecific anatomic findings that can be seen in the setting of nutcracker syndrome and/or pelvic co ngestion syndrome. Abdominal and pelvic wall: Unremarkable. Bones: Mildly displaced fractures of the left transverse processes of L3 and L4. IMPRESSION: 1. No definite acute process to explain right lower quadrant pain. 2. Moderate to large stool burden in the proximal colon with gaseous distention of the mid colon and somewhat abrupt caliber changes but no evidence for obstruction, volvulus, or reactive bowel changes and with the most substantial gaseous distention in the left upper quadrant. Given the caliber change in the mid transverse colon, correlation with colonoscopy is recommended on a nonemergent basis, if not performed recently. 3. Mixed attenuation material within the upper vaginal canal, suggestive of stool by CT. Correlation with symptoms and exogenous material is recommended to exclude colovaginal fistula. 4. Compression of the left renal vein and prominent left gonadal vein, nonspecific anatomic findings that can be seen in the setting of nutcracker syndrome and pelvic congestion syndrome, respectively. The impression above was relayed to Angelique Rosenthal MD by Dr. Manfred Kong over the phone on 09/17/2022 1:40 PM. WSN: [id number] Ordering Physician: Angelique Rosenthal Dictated By: Manfred Kong MD Dictated Date/Time: 09/17/22 1:43 pm Reviewed By: Manfred Kong MD Signed By: Manfred Kong MD Signed Date/Time: 09/17/22 1:43 pm Transcribed By: CSGilberto Transcribed Date/Time: 09/17/22 1:02 pm US Pelvis transvaginal * [facility] , CIS S: TRANSCRIBE Fausto Isaacs MD S: VERIFY Galen BARNES, Silvana A: SIGN Event Display: Result: Authored Date: US Pelvic Transabdominal, US Pelvic Doppler Comp, US Pelvic Transvaginal Hx of Present Illness: pt states abd pain sine was seen at [facility] told to follow up with gastro pt staes increased right lower quad pain radiates to left side states burning sensation 8 10 pain; Reason: Other:; Pelvic Pain; Clinical Question(s): TOA; Order Comment: COMPARISON: CT abdomen and pelvis from earlier today. TECHNIQUE: Transabdominal and transvaginal pelvic ultrasound with grayscale, color Doppler, and spectral Doppler analysis. FINDINGS: UTERUS: Size: 8.1 x 4.4 x 6.7 cm, volume 125.7 cc. Endometrial thickness: 0.3 cm. Morphology: Normal retroverted configuration and echotexture. There is an IUD in position. Otherwise unremarkable ultrasound of the uterus. RIGHT OVARY: Size: 2.7 x 1.7 x 1.7 cm, volume 4.3 cc. Morphology: Normal echotexture with normal appearing follicles. No pathologic cysts or mass. Normalarterial and venous waveforms. LEFT OVARY: Size: 2.5 x 1.5 x 3.0 cm, volume 6.0 cc. Morphology: Normal echotexture with normal-appearing follicles. There is a corpus luteum cyst. No pathologic cysts or mass. Normal arterial and venous waveforms. ADNEXA: Normal. No adnexal masses or fluid collections. VAGINA: Partially obscured by the bowel gas. IMPRESSION: No evidence of acute ovarian abnormality. Of note, at the end of the examination, there was fecal material on the transvaginal ultrasound probe supporting the findings on the CT scan which are concerning for a rectovaginal fistula. MRI with contrast may be the best examination to identify site of fistula. I have personally reviewed the images and I agree with this report. WSN: [id number] Ordering Physician: Luda Erickson Dictated By: Silvana Aaron MD Dictated Date/Time: 09/17/22 7:08 pm Reviewed By: Fausto Isaacs MD Signed By: Fausto Isaacs MD Signed Date/Time: 09/17/22 7:13 pm Transcribed By: ALLEN Transcribed Date/Time: 09/17/22 7:03 pm US Pelvis * [facility] , CIS S: TRANSCRIBE Fausto Isaacs MD: VERIFY Silvana Aaron MD: SIGN Event Display: Result: Authored Date: [id number] US Pelvic Transabdominal, US Pelvic Doppler Comp, US Pelvic Transvaginal Hx of Present Illness: pt states abd pain sine was seen at [facility] told to follow up with gastro pt staes increased right lower quad pain radiates to left side states burning sensation 8 10 pain; Reason: Other:; Pelvic Pain; Clinical Question(s): TOA; Order Comment: COMPARISON: CT abdomen and pelvis from earlier today. TECHNIQUE: Transabdominal and transvaginal pelvic ultrasound with grayscale, color Doppler, and spectral Doppler analysis. FINDINGS: UTERUS: Size: 8.1 x 4.4 x 6.7 cm, volume 125.7 cc. Endometrial thickness: 0.3 cm. Morphology: Normal retroverted configuration and echotexture. There is an IUD in position. Otherwise unremarkable ultrasound of the uterus. RIGHT OVARY: Size: 2.7 x 1.7 x 1.7 cm, volume 4.3 cc. Morphology: Normal echotexture with normal appearing follicles. No pathologic cysts or mass. Normalarterial and venous waveforms. LEFT OVARY: Size: 2.5 x 1.5 x 3.0 cm, volume 6.0 cc. Morphology: Normal echotexture with normal-appearing follicles. There is a corpus luteum cyst. No pathologic cysts or mass. Normal arterial and venous waveforms. ADNEXA: Normal. No adnexal masses or fluid collections. VAGINA: Partially obscured by the bowel gas. IMPRESSION: No evidence of acute ovarian abnormality. Of note, at the end of the examination, there was fecal material on the transvaginal ultrasound probe supporting the findings on the CT scan which are concerning for a rectovaginal fistula. MRI with contrast may be the best examination to identify site of fistula. I have personally reviewed the images and I agree with this report. WSN: [id number] Ordering Physician: Luda Erickson Dictated By: Silvana Aaron MD Dictated Date/Time: 09/17/22 7:08 pm Reviewed By: Fausto Isaacs MD Signed By: Fausto Isaacs MD Signed Date/Time: 09/17/22 7:13 pm Transcribed By: ALLEN Transcribed Date/Time: 09/17/22 7:03 pm Patient Care team information Care Team Personnel Name: Not on Staff, PCP Position: [facility] Physician (General Medicine) Member Role: PCP Name: Osmar Martines RN Position: [facility] ED RN W/OE and Tasks Member Role: Patient Care Provider Name: Luda Erickson NP Position: [facility] Associate Professional Member Role: ED Physician Suspect Artist Supervisor Address: Address: [address] [place] [id number]- Name: Matthew Diaz MD Position: [facility] ED Medicine MD Member Role: Admitting Physician Address: Address: [address] [place] [id number]- Care Team Related Persons Name: BEST DALY Address: home [address] [place] [id number]
--- OUTSIDE RECORDS SUMMARY | 2024-06-15 23:25 | XMS_ITS | Continuity of Care Document ---
Author Organization [facility] Address [address] [place] [id number]- Care Team Providers Care Managed Services Consultant Name Role Phone Not on Staff, PCP Primary Care Physician Unavail able Encounter [facility] Date(s): 09/18/22 - 09/18/[address] [address]- Discharge Disposition: A-D/C Walkout Attending Physician: Not on Staff, Attending MD Admitting Physician: Not on Staff, Admitting MD Referring Physician: Not on Staff, Referring [...] 09/24/22 23:21:00 EST, 09/17/22 23:21:00 EST, Tablet, [facility]/pharmacy #[id number], Partial fill upon patient request if the [...] Papanicolaou smear Confirmed Active Depression Confirmed Active Vital Signs Most recent to oldest [Reference Range]: 1 2 3 Height 154 cm (09/18/22 10:04 AM) Weight 61 kg (09/18/22 10:04 AM) Oxygen Saturation [94-100 %] 98 % (09/18/22 1:02 PM) 99 % (09/18/22 10:04 AM) 99 % (09/18/22 9:36 AM) Pulse Rate [55-90 bpm] 101 bpm *H* (09/18/22 1:02 PM) 115 bpm *H* (09/18/22 10:04 AM) 133 bpm *H* (09/18/22 9:36 AM) Body Mass Index [18.5-24.99 kg/m2] 25.72 kg/m2 *H* (09/18/22 10:04 AM) Blood Pressure [90-138/55-84 mm Hg] 130/87mm Hg (09/18/22 1:02 PM) 139/86mm Hg *H* (09/18/22 10:04 AM) Respiratory Rate [16-30 br/min] 18 br/min (09/18/22 10:04 AM) Temperature [96.8-100.4 DegF] 98.6 DegF (09/18/22 1:02 PM) 98.3 DegF (09/18/22 10:04 AM) Mode of Delivery (Oxygen) Room air (09/18/22 1:02 PM) Room air (09/18/22 10:04 AM) Room air (09/18/22 9:36 AM) Blood pressure sites Arm, right (09/18/22 1:02 PM) Arm, left (09/18/22 10:04 AM) Temperature Route Oral (09/18/22 1:02 PM) Oral (09/18/22 10:04 AM) Patient Care team information Care Team Personnel Name: Not on Staff, PCP Position: S Physician (General Medicine) Member Role: PCP Care Team Related Persons Name: BEST DALY Address: home [address] [place] [id number]
--- OUTSIDE RECORDS SUMMARY | 2024-06-15 23:25 | XMS_ITS | Continuity of Care Document ---
Author Organization [facility] Address [address] [place] [id number] Care Team Providers Care Palm Gatherer Name Role Phone Not on Staff, PCP Primary Care Physician Unavail able Encounter [facility] [place] Date(s): 09/18/22 - 09/21/[address] [id number]- Discharge Disposition: A-D/C Home Attending Physician: Dao Amos MD Admitting Physician: Dao Amos MD Referring Physician: Dao Amos MD Allergies, Adverse Reactions, Alerts No Known Allergies Immunizations Given and Recorded Vaccine Date Status Refusal Reason influenza virus vaccine, inactivated 09/17/10 Give n Medications acetaminophen 325 mg oral tablet 650 mg, Tablet, By Mouth, Every 6 hours, PRN for Pain , Mild, Routine, 09/18/22 20:53:00 EST Start Date: 09/18/22 Stop Date: 09/22/22 Status: Discontinued acetaminophen 325 mg oral tablet 650 mg, 2, tablet, By Mouth, Every 6 hours, PRN, Refills 0, Maintenance, Pain , Mild, 09/20/22 16:57:00 EST, Partial fill upon patient request if the prescription is for a schedule II opioid drug. Start Date: 09/20/22 Status: Ordered amoxicillin-clavulanate 875 mg-125 mg oral tablet 1 tablet, By Mouth, 2 times a day, for 7 days, # 14 tablet, 0 Refills, Acute 09/28/22 9:53:00 EST, 09/21/22 9:53:00 EST, Tablet, [facility], Partial fill upon patient request if the prescription is for a schedule II opioid drug., 154, cm... Start Date: 09/21/22 Stop Date: 09/28/22 Status: Ordered docusate sodium 100 mg oral capsule 1 capsule = 100 mg, By Mouth, 2 times a day, # 28 capsule, 0 Refills, Maintenance, 09/21/22 9:53:00EST, Capsule, [facility], Partial fill upon patient request if the prescription is for a schedule II opioid drug., 154, cm, 09/21/22 3:24... Start Date: 09/21/22 Stop Date: 10/05/22 Status: Ordered levonorgestrel 1.5 mg oral tablet 1 tablet = 1.5 mg, By Mouth, Once, # 1 tablet, 0 Refills, Soft Stop, 02/18/14 9:57:19, Tablet, 1 tablet By Mouth Once Start Date: 02/18/14 Status: Ordered metroNIDAZOLE 500 mg oral tablet 1 tablet = 500 mg, By Mouth, Every 12 hours, for 7 days, # 14 tablet, 0 Refills, Acute 09/27/22 16:57:00 EST, 09/20/22 16:57:00 EST, Tablet, [facility], Partial fill upon patient request if the prescription is for a schedule II opioid dr... Start Date: 09/20/22 Stop Date: 09/27/22 Status: Ordered sertraline 50 mg oral tablet [...] smear Confirmed Active Depression Confirmed Active Results Radiology Reports * Exam Date Time Procedure Performing Provider Status 09/19/22 12:[address] Enterography Annamarie Coburn; Rubina th (Verified) Notes: (CT Enterography) Reason For Exam: IBD workup;Other: RESULT: CT Enterography CT Enterography INDICATION: IBD workup; Clinical Question(s): Fistula TECHNIQUE: During uneventful administration of intravenous contrast, helical CT of the abdomen and pelvis was performed. 100 cc of Omnipaque 300 was administered intravenously. Coronal and sagittal reformatted images generated. Oral Volumen contrast was administered. Weight-based protocol using automatic tube modulation was used to optimize exposure parameters. RADIATION DOSE PARAMETERS: CTDIvol Body: 6.70 mGy, DLP Body: 372 mGy*cm. COMPARISON: CT abdomen/pelvis 09/17/2022. MRI pelvis 09/19/2022. FINDINGS: Distention of small bowel loops is excellent. The small bowel wall demonstrates no thickening, abnormal enhancement or mass. The terminal ileum is unremarkable. The appendix is normal. The colon demonstrates focal wall thickening and subtle adjacent fat stranding in the mid transverse colon (axial image 134, sagittal image 109). There is no evidence of bowel stricture, phlegmon or abscess. There is no pneumoperitoneum or ascites. There is no engorgement of the vasa recta. The celiac, superior mesenteric and inferior mesenteric arteries are patent without significant stenosis. No SMV, splenic, portal or hepatic vein thrombus. Lung Bases: Mild bibasilar airspace opacity, right more than left, likely atelectasis. Normal heartsize. No pleural or pericardial effusion. Liver: Unremarkable. Gallbladder: Unremarkable. Bile ducts: No intra or extra hepatic bile duct dilation. Spleen: Normal in size and attenuation. Pancreas: Normal. Adrenal Glands: Normal. Kidneys and Ureters: No calculi or hydronephrosis. No suspicious masses. Lymph nodes: No pathologically enlarged lymph nodes. Vascular structures:The aorta is normal in caliber. Abdominal wall: Unremarkable. Pelvic Organs and Bladder: Unremarkable appearance of the bladder. Again seen is mottled gas containing material in the posterior aspect of the vagina. IUD appears appropriately positioned in the retroverted uterus. Bones: No acute findings. Chronic appearing left L3 and L4 transverse process fractures. IMPRESSION: Focal wall thickening and adjacent fat stranding involving the mid transverse colon, concerning forcolitis, could be infectious or inflammatory. No evidence of obstruction, perforation, abscess, or fistula. Heterogeneous gas-containing material in the posterior vagina. Per the electronic medical record, pelvic exam performed subsequent to the time of this CT showed that there was a tampon in the vagina,which can account for the appearance on CT. No other findings to suggest rectovaginal fistula. WSN: [id number] Ordering Physician: Miracle Worrell Dictated By: Sha Panchal MD Dictated Date/Time: 09/19/22 3:24 pm Reviewed By: Sha Panchal MD Signed By: Sha Panchal MD Signed Date/Time: 09/19/22 3:24 pm Transcribed By: ALLEN Transcribed Date/Time: 09/19/22 3:03 pm * Exam Date Time Procedure Performing Provider Status 09/19/22 1:00 AM MRI Pelvis W+W/O Contrast Robby Arizmendi; Auth (Verified) Notes: (MRI Pelvis W+W/O Contrast) Reason For Exam: Fistula RESULT: MRI Pelvis W+W/O Contrast MRI Pelvis W+W/O Contrast CLINICAL INDICATION: Reason: Fistula; Clinical Question(s): Other:; fistula; Order Comment: Please see Reference Text for complete list of contraindications Other: TECHNIQUE: Multiplanar, multisequence pre and post contrast MRI evaluation of the pelvis was performed. 13 cc of Clariscan gadolinium administered intravenously. COMPARISON: CT abdomen pelvis 09/17/2022. FINDINGS: Vagina: The proximal portion of the vagina is distended with T2 intermediate, T1 hypointense material, similar to that of adjacent stool in the bowel. No internal enhancement. The appearance again raises concern for a colovaginal fistula. There is generalized diffuse enhancement of the vaginal wallsuggesting mild inflammation. There is obliteration of the normal fat plane between the rectum and vagina was slightly increased enhancement of the rectal serosa. In the posterior aspect of the vaginal fornix there is a subtle focus of suspected intramural gas (218/11). A definite well-defined formed fistula tract is difficult to appreciate, though there appears to be a very subtle linear hypoenhancing area extending to the gas bubble in the vaginal wall (209/11) raising the possibility of a small fistula () UTERUS: The uterus is retroflexed. There is a IUD in place in appropriate position at the fundus. Multiple small nabothian cysts in the cervix. RIGHT OVARY: Normal in size. A few small normal-appearing follicles. LEFT OVARY: Normal in size. Single dominant follicle. No suspicious lesion. PELVIS: No free fluid in the pelvis. BLADDER: Distended but otherwise normal. LOWER GI TRACT: Suspected rectovaginal fistula as above. Small bowel loops and remainder of the visualized colon are normal. LYMPH NODES: No enlarged lymph nodes. VESSELS: Patent pelvic vasculature. No thrombosis. BONES AND SOFT TISSUES: No acute abnormality. IMPRESSION: 1. Abnormal enhancement of the vaginal mucosa and rectal serosa with a focus of gas in the vaginal wall along the posterior fornix. While a definite formed fistula is difficult to appreciate there theresa linear area of hypoenhancement extending to the focus of gas from the rectum to the vaginal wall raising suspicion for a small rectovaginal fistula. 2. Heterogeneous debris within the superior vagina, similar to the bowel contents is not significantly changed from 09/17/2022. WSN: [id number] Ordering Physician: Ilana Lakhani Dictated By: Dao Del Cid MD Dictated Date/Time: 09/19/22 8:13 am Reviewed By: Dao Del Cid MD Signed By: Dao Del Cid MD Signed Date/Time: 09/19/22 8:13 am Transcribed By: ALLEN Transcribed Date/Time: 09/19/22 7:52 am Vital Signs Most recent to oldest [Reference Range]: 1 2 3 Height 154 cm (09/21/22 3:00 AM) 154 cm (09/20/22 11:00 PM) 154 cm (09/20/22 7:00 PM) Weight 61 kg (09/21/22 3:00 AM) 61 kg (09/20/22 11:00 PM) 61 kg (09/20/22 7:00 PM) Oxygen Saturation [94-100 %] 100 % (09/21/22 12:00 PM) 97 % (09/21/22 8:00 AM) 98 % (09/21/22 3:00 AM) Pulse Rate [55-90 bpm] 72 bpm (09/21/22 12:00 PM) 76 bpm (09/21/22 8:00 AM) 81 bpm (09/21/22 3:00 AM) Body Mass Index [18.5-24.99 kg/m2] 25.72 kg/m2 *H* (09/20/22 1:18 PM) 24.58 kg/m2 (09/18/22 7:54 PM) Blood Pressure [90-138/55-84 mm Hg] 136/87mm Hg (09/21/22 12:00 PM) 126/90mm Hg (09/21/22 8:00 AM) 129/78mm Hg (09/21/22 3:00 AM) Respiratory Rate [16-30 br/min] 18 br/min (09/21/22 12:00 PM) 18 br/min (09/21/22 8:00 AM) 16 br/min (09/21/22 7:32 AM) Temperature [96.8-100.4 DegF] 98.5 DegF (09/21/22 12:00 PM) 98.2 DegF (09/21/22 8:00 AM) 98.1 DegF (09/21/22 3:00 AM) Mode of Delivery (Oxygen) Room air (09/21/22 12:00 PM) Room air (09/21/22 8:00 AM) Room air (09/21/22 3:00 AM) Blood pressure sites Arm, right (09/21/22 12:00 PM) Arm, right (09/21/22 8:00 AM) Arm, left (09/21/22 3:00 AM) Temperature Route Oral (09/21/22 12:00 PM) Oral (09/21/22 8:00 AM) Oral (09/21/22 3:00 AM) Dry Weight 58.3 kg (09/18/22 7:54 PM) Admission evaluation note * Lesvia BARNES, Vitalis C: PERFORM Event Display: Admission Note Authored Date: Patient: ??MARSHALL KATHLEEN ? Age:??42 Years?Sex:??Female?:??1980?? Chief Complaint Abdominal pain History of Present Illness Ms.??Brittany is a 42 year old female with??PMHx of HTN??and abnormal??PAP smear s/p??a LEEP procedure in 2001, who is a direct admit to colorectal surgery. Pt was recently evaluated on 09/17 due to??LLQ cramping abdominal pain, associated with diarrhea.??At that time, she endorsed??2-[address]??abdomen/??pelvis??showed moderate to large stool burden in the proximal colon, with gaseous distention of the mid colon. There was also??a mixed attenuation material within theupper vaginal canal suggestive of stool.??She??had a transvaginal ultrasound, and at the end of procedure, the US probe was noted to be covered with feces like material. Given concern for colovaginalfistula, we made recommendations on next steps, but pt was insistent on leaving the hospital. Upon return today, she was evaluated at bedside. She reports right sided abdominal pain, nausea, and no vomiting.??She states that??her??abdominal pain symptoms have been ongoing for a year, and recently wo rsened on , which led her to??come to the hospital. Pain??is exacerbated by??PO intake, and??improves when??she lays still. Lab is pertinent for sed rate 97, CRP 23.2, and K 3.5. She??denies any dysuria, pneumouria, or changes in urinary frequency, and??is otherwise hemodynamicallystable. ?? Review of Systems Constitutional:??No weight loss, fever, chills, weakness or fatigue. Eyes:??No visual loss, blurred vision, double vision or yellow sclera ENT:??No hearing loss, sneezing, congestion, runny nose or sore throat. Respiratory:??No shortness of breath, cough or sputum production. Cardiovascular:??No chest pain, chest pressure or chest discomfort. No palpitations or pedal edema. Gastrointestinal: Abdominal pain, and nausea. Genitourinary:??No burning micturition. No urinary frequency or incontinence. Neurologic:??No headache, dizziness, syncope, unilateral weakness, ataxia, numbness or tingling in the extremities. No change in bowel or bladder control. Musculoskeletal:??No muscle pain, back pain, joint pain or stiffness. Skin:??No rash or itching. Physical Exam Vitals & Measurements T:??98.4?F ?? IA:??91?? RR:??18?? BP:??126/77?? SpO2:??99%?? HT:??154??cm?? WT:??61??kg?? Constitutional: Alert, in no distress. Mental Status: Oriented to person, place and time. Eyes: Extraocular muscles intact. Ear, Nose and Throat: Oropharynx clear, mucous membranes moist. Trachea midline. Neck: Supple, Full range of motion. Respiratory: Clear to auscultation. No wheezing, rales or rhonchi. Cardiovascular: S1 S2 regular. No murmurs, rubs or gallops. Gastrointestinal: Abdomen soft,??and non-distended. There is generalized abdominal tenderness, R >> L. There is evidence of rebound tenderness on the??right quadrants, without guarding. Normal bowel sounds. Genitourinary: No costovertebral angle tenderness. Neurologic: Moves all extremities spontaneously. Sensation intact bilaterally. Skin: No rashes or lesions. No petechiae or purpura.?? Musculoskeletal: Normal range of motion. Heme/Lymphatics/Immun: Palpation of neck reveals no swelling or tenderness of neck nodes. Palpationof groin reveals no swelling or tenderness of groin nodes. Assessment/Plan .??Brittany is a 42 year old female with??PMHx of HTN??and abnormal??PAP smear s/p??a LEEP procedure in 2001, who is a direct admit to colorectal surgery due to concern for colovaginal fistula, based on 09/[address]??A/P and transvaginal US. Pt was??carefully evaluated at bedside today, and found to have generalized abdominal tenderness R >> L, with rebound tenderness on the right quadrants.??She states that pain??is exacerbated by??PO intake, and??improves when??she lays still. Lab is pertinent for elevated sed rate 97, elevated CRP 23.2, and low K 3.5.??WBC is improved from prior: 12.9 -> 7.7.??Given concern for colovaginal fistula, we will consult our GI colleagues for a colonoscopy this admission to evaluate??possible fistula, as well as its potential??etiologies(infection vs. malignancy vs. diverticulitis, etc). We will also consult L[facility] Maker for further workup, given??vaginal involvement. Further workup with??pelvic MRI and CT Enterography, and??will keep pt NPOuntil a more definitive diagnosis is reached.??Therefore, no??colorectal surgical interventions at this time. ? Plan: - Keep NPO with IVF - No acute colorectal surgical intervention at this time - FU MRI - FU CT Enterography - GI consult - L[facility] Maker consult - Replete electrolytes as indicated - Multimodal pain control - Antiemetic regimen - No need for antibiotics at this time ?? Case discussed with Dr. Amos Colorectal surgery [id number] Problem List/Past Medical History Ongoing Abnormal cervical Papanicolaou smear Depression Historical No qualifying data Procedure/Surgical History termination of : 2006 LEEP: 2001 termination of : 1999 Home Medications Ethinyl Estradiol-Norgestimate: 1 tablet, By Mouth, Daily Levonorgestrel: 1.5 mg = 1 tablet, By Mouth, Once Metronidazole: 500 mg = 1 tablet, By Mouth, Every 12 hours Sertraline: 50 mg = 1 tablet, By Mouth, Daily Allergies NKA Family History Mother: Diabetes mellitus type II; Hyperlipidemia; Hypertension Father: Hyperlipidemia Pat. Grandfather (): CAD - Coronary artery disease Lab Results Labs Last 24 Hours BLOOD COUNT & DIFF ? Event Name?? Event Result?? Date/Time?? WBC 7.7 k/mm3 09/18/22 19:23:00 RBC 3.68 m/mm3??Low 09/18/22 19:23:00 Hgb 12 Gm/dL 09/18/22 19:23:00 Hct 34.1 %??Low 09/18/22 19:23:00 MCV 92.7 femtoliters 09/18/22 19:23:00 MCH 32.6 pg 09/18/22 19:23:00 MCHC 35.2 g/dL 09/18/22 19:23:00 Platelet Count 347 k/mm3 09/18/22 19:23:00 MPV 8.8 femtoliters??Low 09/18/22 19:23:00 Nucleated RBC (Automated) 0 #/100 WBC'S 09/18/22 19:23:00 ? COAG ? Event Name?? Event Result?? Date/Time?? INR 1.1 09/18/22 19:23:00 Protime (PT) 11.1 seconds 09/18/22 19:23:00 APTT 28.4 seconds 09/18/22 19:23:00 ? CHEM GENERAL ? Event Name?? Event Result?? Date/Time?? Sodium 133 mmol/L 09/18/22 19:23:00 Chloride 95 mmol/L??Low 09/18/22 19:23:00 Bicarbonate Level 26 mmol/L 09/18/22 19:23:00 Anion Gap 12 09/18/22 19:23:00 BUN 6 mg/dL 09/18/22 19:23:00 Creatinine-Blood 0.5 mg/dL 09/18/22 19:23:00 Calcium, Ionized pH Corrected 1.24 mmol/L 09/18/22 19:23:00 Phosphorus 2.5 mg/dL 09/18/22 19:23:00 Magnesium 1.8 mg/dL 09/18/22 19:23:00 ? * Dandre BARNES, Dao Aponte: PERFORM Event Display: Admission Note Authored Date: See the associated note for details. ??I saw and evaluated the patient, performed all deluca portions of evaluation and management personally, discussed with the resident/advanced practitioner team and agree with their findings and plans as written, with following additions/amendments/clarifications: For service 09/19 ?? 42F with??no relevant PMH, presenting with??abdominal pain and tenderness with possible diarrhea for the past week.?? She says??she had one episode like this 1 year ago -???no workup at that time? - but was then in usual state of health until??1 week ago when she developed burning pain in abdomen.?? She says the pain is constantly present, has worsened in severity, and is located in the right mid-abdomen, but upper??abdomen greater than lower.?? The??pain is??worsened by eating; she recounts yesterday she ate two bites of a sandwich, and within a few minutes had more severe right abdominal pain and loss of appetite??and threw the sandwich away.?? She endorses associated nausea but denies vomiting.?? She denies fever.?? She also endorses copious diarrhea??last week.?? She??reveals that last week she went to [facility] where they did a CT scan and??told her it appeared normal, and they gave her one or??two doses of antidiarrheal medication.?? She??then had no bowel movements for afew days.?? She??denies blood??in her stool.?? Her usual bowel movements are once per day, formed in consistency, passing without straining. Of note, when seen in ED??here at [facility] 2 days ago, she underwent CT scan which suggested solid material in her vagina, and when she underwent??transvaginal ultrasound, at the conclusion of that study, there was suggestion of stool on the ultrasound probe, raising the question of??enterovaginal fistula of some kind.?? CT scan had not definitely noted any inflammation in pelvis.?? Patient??doesendorse 3 prior vaginal deliveries, one with significant tearing and need for suture repair in 2000.?? She denies??issues since??then, and denies issues with continence or issues with vaginal drainage.?? She does admit that about??2 weeks ago she started noticing some vaginal spotting, but seems tohave thought little of it.?? She endorses sexual activity, and admits to some increased dyspareuniaof late. ?? Vitals and labs normal.?Prior CT scan showing no definite inflammation, no definite colitis; questioned some areas of distention of the colon and contraction of others, but on my evaluation these appear within??normal limits.?Cecum is prominently located in right abdomen,??gas filled and measu ring 6cm in diameter.?? On examination, patient is in no acute distress, appears??very comfortable.?? Tenderness to palpation most notably in the RUQ, also in the LUQ, and notably absent in the bilateral lower quadrants.?? Some voluntary guarding appreciated??diffusely but able to relax on command.?? No evidence of peritonitis.?? On vaginal exam, ?granular??material appreciated in upper vagina, unclear.?? On withdrawal of my finger, there is some thing franks fluid??on my finger possibly consistent with pus, not definitely stool.?On external anorectal exam limited by positioning/lighting, there are a few small non-inflammed anal tags.?? Anal exam does not??demonstrate any obvious swelling, fluctuance,??induration, masses, or defects.?? There??is also some thin franks fluid on my finger here. ?? Cause of abdominal pain is unclear.?? Existence of??enterovaginal fistula is unclear.?? Differential??that could account for both issues includes Crohn's disease or diverticulitis.?Other differential for abdominal pain could include infectious gastroenteritis,??hepatobiliary or gastric issues such as cholecystitis or PUD, among other causes.?? Differential for vaginal drainage could be a strictly gynecologic source. ?? - Obtain MRI??pelvis to assess for inflammation, evidence of enterovaginal fistula - Obtain CT Enterography to further assess??for enterocolitis - Gynecology consult for examination with or without anesthesia - Gastroenterology consult for assessment,??colonoscopy, possible upper endoscopy - NPO for now - hold antibiotics, pain medications for now - IVF - further recommendations to follow ?? Dao Amos MD MS Attending, [facility] Progress note * Cheri Whitman LPN: PERFORM, SIGN, VERIFY Event Display: Progress Note Hospital Authored Date: Patient: MARSHALL KATHLEEN Age: 42 years Sex: Female : 1980 Associated Diagnoses: None Author: Cheri Whitman LPN Findings Problem Related to Alteration in Gastrointestinal : Alteration in Gastrointestinal Func/new 09/21/2022 13:00 EST Alteration in GI status Related to Other: ? colovaginal fistula Goals & Outcomes, Gastrointestinal Establish a regular pattern of elimination for pt, Nutritional intake is adequate for metabolic needs, Pt will achieve normal/improved fluid balance, Pt will have a bowel movement prior to discharge, Pt will maintain adequate GI function appropriate for pt, Ptwill maintain normal elimination patterns, Pt will resume/maintain adequate hemodynamic status, Pt w ill tolerate age appropriate diet prior to discharge Interventions, Gastrointestinal Assess/monitor abdomen for distention, tenderness, Assess/monitor abdominal girth & bowel function, Assess/monitor bowel pattern, bowel sounds, flatus, Assess/monitor number of bowel movements, Assess/monitor color, quantity, quality, consistency of stoo, Assess/monitor pt for nausea, vomiting, Assess/monitor effects of re-hydration, Assess/monitor intake &output, Assess if pt tolerating diet, Elevate HOB to facilitate lung expansion, prevent aspiration,Teach Pt/caregiver on bowel elimination interventions, Teach Pt/caregiver re: importance of bowel regime, Teach Pt/caregiver re: nutritional intake & dietary restrict, Teach/encourage deep breath& cough exercises, Teach/encourage use of incentive spirometer Goals/Interventions, Gastrointestinal Yes Gastrointestinal, Problem Start 09/18/2022 20:00 Reviewed plan with, Gastrointestinal Patient Patient Progression, Gastrointestinal Pt progressing according to plan . Nursing Data Gastrointestinal Data. : Gastrointestinal Data. 09/21/2022 12:37 EST Gastrointestinal Symptoms Belching, Flatulence Abdomen Soft, Tender, Distended, Round LLQ Tenderness To palpation RLQ Tenderness To palpation Bowel Sounds LUQ Hyperactive Bowel Sounds RUQ Hyperactive Bowel Sounds LLQ Hyperactive Bowel Sounds RLQ Hyperactive Last Bowel Movement 09/20/2022 Ostomy present No Gastric tube present No GI WNL except . Respiratory/Pulmonary Data. : Respiratory/Pulmonary Data. 09/21/2022 12:37 EST Respiratory Symptoms None Respiratory effort Unlabored Patient participation Cooperative Cough No cough Respiratory pattern Regular Left Upper Lobe Breath Sounds Clear Right Upper Lobe Breath Sounds Clear Right Middle Lobe Breath Sounds Clear Left Lower Lobe Breath Sounds Clear Right Lower Lobe Breath Sounds Clear Respiratory distress None Respiratory Treatment(s) Cough and deep breathe, Incentive spirometry Respiratory WNL except . Narrative/Incidental Patient is alert/ oriented x4. Reports pain 5/10, declined Meds. Lungs are clear on room air. Encouraged to cough/ deep breathe and use incentive spirometer. Has + pedal pulses, + color/ motion/ sensation, no edema. Patient has Hyperactive bowel sounds x4 quadrants, abdomen is soft/ round/ tender to RLQ/ LLQ on palpation. Diet is regular, denies nausea/ vomiting. Voiding clear yellow urine. Skin is intact. Ambulating independently in room and acevedo. Call treadwell within reach, able to use appropriately. Discharge Information Case Management Discharge Plan : Case Management Discharge Plan Data 09/17/2022 23:41 EST Discharge Level of Care at Discharge Home/Alf/Foster Care * Anaid BARNES, Miracle Ordonez: PERFORM Event Display: Progress Note Hospital Authored Date: [id number] Patient: ??MARSHALL KATHLEEN ? Age:??42 Years?Sex:??Female?:??1980?? Subjective No acute overnight events. Patient reports pain better controlled. Denies any nausea, vomiting, fever, chills, chest pain or sob at this time. Reports voiding adequately. + Flatus/BM. +Ambulating. Tolerating a diet.?? Physical Exam Vitals & Measurements T:??98.2?F ?? IA:??76?? RR:??18?? BP:??126/90?? SpO2:??97%?? HT:??154??cm?? WT:??61??kg?? BMI:??25.72?? PHYSICAL EXAMINATION: GENERAL: No acute distress. Non-toxic. Well appearing and interactive.?? HEAD: Normocephalic. Atraumatic.?? EYES: Extra-ocular movements intact. ENT: Patent nares and oropharynx.?? CARDIAC: Regular rate and rhythm, no mgr.?? RESPIRATORY: Equal and symmetric breath sounds bilaterally; clear breath sounds.?? GASTROINTESTINAL: Soft. Mildly-distended. Tender to RLQ. No guarding. No rebound tenderness.?? MUSCULOSKELETAL: Moving all extremities equally. No calf fullness or tenderness.?? SKIN: Warm and well perfused. Intact skin turgor. No edema noted on exam.?? Assessment/Plan Marshall Kathleen is a 42 year old woman with past medical history of hypertension and a LEEP procedure in 2001??who presented to the ED for 1 week of abdominal pain, decreased PO and brown vaginaldischarge.??She underwent a CT of the abdomen and pelvis which showed moderate to large stool burden in the proximal colon with gaseous distention of the mid colon and a somewhat abrupt caliber change with no evidence for obstruction, volvulus or reactive bowel changes and with the most substantialgaseous distention in the left upper quadrant.?? It was also noted that there was mixed attenuationmaterial within the upper vaginal canal suggestive of stool by CT.??she subsequently had a transvaginal ultrasound which did not show any abnormality but at the end of the procedure that??probe was noted to be covered with feces like material. ??Due to concern for colovaginal fistula, colorectal surgery consultation was placed for help with further??evaluation and management. ?? Due to imaging findings,??GI??was consulted for Crohn's fistula and concurrent Lard Maker consult for??possible rectovaginal fistula involvement??and further pelvic??exam workup.??After consult from Lard Maker, patient was found to have thick brown discharge emanating from posterior vaginal fornix. This materialwas noted to be??secondary to discovery of a retained tampon that was placed by the patient over three weeks ago. Upon removal of tampon,??Lard Maker??had no further concerns of fistula, as the??feculent type material was noted to be??old blood mixed with??infected retained tampon. However, patient was tested positive by Lard Maker for bacterial vaginosis and gonorrhea, in which??the patient will begin treatment.??CT enterography was also obtained for further evaluation and showed focal wall thickening and adjacent fat stranding involving the mid transverse colon, concerning for colitis, could be infectious or inflammatory. No evidence of obstruction, perforation, abscess, or fistula. GI has??agreed to colonoscopy to further investigate??possible Crohn's fistula involvement, but no abnormalities were identified.??Diet successfully advanced. Antibiotics broadened to cover mild colitis. ?? Plan: - Regular diet - Multimodal pain control - 1x 500mg IM dose of Ancef completed for gonorrhea - Flagyl 500mg BID, day 2/7 - Augmentin 875 BID added, day 1/7 - Antiemetics for nausea PRN - Bowel reg PRN - OOB and ambulation - Possible discharge in PM if doing well. ?Please page colorectal surgery, [phone] with any questions or concerns.?Discussed with Dr. Stephens Intake and Output Intake and Output Results?? This visit (24 hour periods starting at 07:00 EST)? 09/21/22 *?? 09/20/22?? 09/19/22?? Total Summary?Intake mL?? 430?? 1,930?? 2,600?Output mL?? --?? 1,550?? 900?Fluid Balance ?? 430?? 380?? 1,700?? Intake (3)?Doxycycline mL?? --?? --?? 100?Lactated Ringers Injection 1,000 mL mL?? 250?? 1,450?? 2,200?Oral Fluids mL?? 180?? 480?? 300?Total?? 430?? 1,930?? 2,600?? Output (1)?Urine Voided mL?? --?? 1,550?? 900?Total?? --?? 1,550?? 900?? Counts (3)?Oral Fluids mL?? 180?? 480?? 300?Urine Count ?? --?? 3?? 3?Urine Voided mL?? --?? 1,550?? 900? * This column has not completed the indicated time period.?? Labs Last 24 Hours BLOOD COUNT & DIFF ? Event Name?? Event Result?? Date/Time?? WBC 6.5 k/mm3 09/21/22 05:38:00 RBC 3.37 m/mm3??Low 09/21/22 05:38:00 Hgb 10.6 Gm/dL??Low 09/21/22 05:38:00 Hct 31.9 %??Low 09/21/22 05:38:00 MCV 94.7 femtoliters 09/21/22 05:38:00 MCH 31.5 pg 09/21/22 05:38:00 MCHC 33.2 g/dL 09/21/22 05:38:00 Platelet Count 373 k/mm3 09/21/22 05:38:00 MPV 8.9 femtoliters??Low 09/21/22 05:38:00 Nucleated RBC (Automated) 0 #/100 WBC'S 09/21/22 05:38:00 ? COAG ? Event Name?? Event Result?? Date/Time?? INR 1.1 09/21/22 05:38:00 Protime (PT) 11.3 seconds 09/21/22 05:38:00 APTT 28.3 seconds 09/21/22 05:38:00 ? CHEM GENERAL ? Event Name?? Event Result?? Date/Time?? Sodium 138 mmol/L 09/21/22 05:38:00 Chloride 103 mmol/L 09/21/22 05:38:00 Bicarbonate Level 25 mmol/L 09/21/22 05:38:00 Anion Gap 10 09/21/22 05:38:00 BUN 5 mg/dL??Low 09/21/22 05:38:00 Creatinine-Blood 0.4 mg/dL??Low 09/21/22 05:38:00 Calcium, Ionized pH Corrected 1.15 mmol/L 09/21/22 05:38:00 Phosphorus 4 mg/dL 09/21/22 05:38:00 Magnesium 1.8 mg/dL 09/21/22 05:38:00 ? * Angelo BARNES, Nyla Cruz: PERFORM Event Display: Progress Note Hospital Authored Date: [id number] Attending Attestation: I have seen and evaluated this patient.?? I have discussed the case and its management with the resident and agree with the findings and plan as documented in the resident???s note. * Stephanie Jara RN: PERFORM, SIGN, VERIFY Event Display: Progress Note Hospital Authored Date: Patient: MARSHALL KATHLEEN Age: 42 years Sex: Female : 1980 Associated Diagnoses: None Author: Stephanie Jara RN Findings Problem Related to Alteration in Gastrointestinal : Alteration in Gastrointestinal Func/new 09/20/2022 20:00 EST Alteration in GI status Related to Other: ? colovaginal fistula Goals & Outcomes, Gastrointestinal Establish a regular pattern of elimination for pt, Nutritional intake is adequate for metabolic needs, Pt will achieve normal/improved fluid balance, Pt will have a bowel movement prior to discharge, Pt will maintain adequate GI function appropriate for pt, Ptwill maintain normal elimination patterns, Pt will resume/maintain adequate hemodynamic status, Pt w ill tolerate age appropriate diet prior to discharge Interventions, Gastrointestinal Assess/monitor abdomen for distention, tenderness, Assess/monitor abdominal girth & bowel function, Assess/monitor bowel pattern, bowel sounds, flatus, Assess/monitor number of bowel movements, Assess/monitor color, quantity, quality, consistency of stoo, Assess/monitor pt for nausea, vomiting, Assess/monitor effects of re-hydration, Assess/monitor intake &output, Assess if pt tolerating diet, DVT prophylaxis as ordered, Elevate HOB to facilitate lung expansion, prevent aspiration, Teach/encourage deep breath & cough exercises, Teach/encourage use of incentive spirometer Goals/Interventions, Gastrointestinal Yes Gastrointestinal, Problem Start 09/18/2022 20:00 Reviewed plan with, Gastrointestinal Patient Patient Progression, Gastrointestinal Pt progressing according to plan . Nursing Data Vital Signs : VITAL SIGNS SECTION 09/20/2022 23:00 EST Temperature 98.5 DegF Temperature Route Oral Pulse Rate 83 bpm Respiratory Rate 18 br/min Systolic Blood Pressure 113 mm Hg Diastolic Blood Pressure 71 mm Hg Blood pressure sites Arm, left Pulse Pressure 42 mm Hg Oxygen Saturation 98 % Mode of Delivery (Oxygen) Room air 09/20/2022 19:00 EST Temperature 98.2 DegF Temperature Route Oral Pulse Rate 96 bpm H Respiratory Rate 18 br/min Systolic Blood Pressure 121 mm Hg Diastolic Blood Pressure 71 mm Hg Blood pressure sites Arm, left Pulse Pressure 50 mm Hg Oxygen Saturation 99 % Mode of Delivery (Oxygen) Room air . Narrative/Incidental Patient is alert and oriented x4. Denies chest pain, headache, and numbness/tingling. No edema present, +PP and +CMS. Lungs are clear on room air. Denies SOB. Encouraged use of incentive spirometer. Abdomen is soft, round, and tender to palpation. Bowel sounds present and +flatus. Tolerating regular diet and denies nausea and vomiting. Last bowel movement 09/20. Voiding in the bathroom. Skin is intact. Patient reports 2/10 pain. Refused Colace and did not request any pain medications. Ambulatingindependently. Patient is resting comfortably in bed, wheels locked, in lowest position. Call treadwell is in reach and patient rings appropriately. . Discharge Information Case Management Discharge Plan : Case Management Discharge Plan Data 09/17/2022 23:41 EST Discharge Level of Care at Discharge Home/Alf/Foster Care Note * Cheri Whitman LPN: PERFORM Event Display: Discharge/Transfer Note Hospital Authored Date: [id number] Nursing Discharge Note Entered On: 09/21/2022 15:51 EST Performed On: 09/21/2022 15:51 EST by Cheri Whitman LPN Nursing Discharge Note 2 Discharge Time : 09/21/2022 15:45 EST Discharge Level of Care at Discharge : Home/Alf/Foster Care Patient Left Unit Via : Ambulatory Patient Accompanied Off Unit with : Responsible adult DC Instructions Provided & Signed by Pt : Yes Patient Understands D/C Instructions : Yes Patient Instructions Discharge Signed : Yes Did Pt have Specialty Bed or Wound Vac : No Cheri Whitman LPN - 09/21/2022 15:51 EST * Carissa Dawn MD: PERFORM, SIGN, VERIFY Event Display: Discharge/Transfer Note Hospital Authored Date: [id number] Patient: MARSHALL KATHLEEN Age: 42 years Sex: Female : 1980 Associated Diagnoses: None Author: Carissa Dawn MD Discharge Information Admission Date: 09/18/2022 Discharge Date 09/21/2022 Principal Discharge Diagnosis Retained tampon. Secondary Discharge Diagnoses Gonorrhea. Colitis. Medications MEDICATION LIST (Selected) Prescriptions Prescribed Tri-Sprintec oral tablet: 1 tablet, By Mouth, Daily, # 28 tablet, 11 Refills, Maintenance, Tablet amoxicillin-clavulanate 875 mg-125 mg oral tablet: 1 tablet, By Mouth, 2 times a day, for 7 days, #14 tablet, 0 Refills, Acute 09/28/22 9:53:00 EST, 09/21/22 9:53:00 EST, Tablet, [facility], Partial fill upon patient request if the prescription is for a schedule II opioid drug., 154,cm... docusate sodium 100 mg oral capsule: 1 capsule = 100 mg, By Mouth, 2 times a day, # 28 capsule, 0 Refills, Maintenance, 09/21/22 9:53:00 EST, Capsule, [facility], Partial fill upon patient request if the prescription is for a schedule II opioid drug., 154, cm, 09/21/22 3:24... levonorgestrel 1.5 mg oral tablet: 1 tablet = 1.5 mg, By Mouth, Once, # 1 tablet, 0 Refills, Soft Stop, 02/18/14 9:57:19, Tablet, 1 tablet By Mouth Once metroNIDAZOLE 500 mg oral tablet: 1 tablet = 500 mg, By Mouth, Every 12 hours, for 7 days, # 14 tablet, 0 Refills, Acute 09/27/22 16:57:00 EST, 09/20/22 16:57:00 EST, Tablet, [facility], Partial fill upon patient request if the prescription is for a schedule II opioid drAnita. sertraline 50 mg oral tablet: 1 tablet = 50 mg, By Mouth, Daily, # 30 tablet, 3 Refills, Maintenance, Tablet Documented Medications Documented acetaminophen 325 mg oral tablet: 650 mg, 2, tablet, By Mouth, Every 6 hours, PRN, Refills 0, Maintenance, Pain , Mild, 09/20/22 16:57:00 EST, Partial fill upon patient request if the prescription isfor a schedule II opioid drug.. Aware of diagnosis: patient. Discharge condition: good Compared to admission: improved Hospital Course Marshall Kathleen is a 42 year old woman with past medical history of hypertension and a LEEP procedure in 2001 who presented to the ED for 1 week of abdominal pain, decreased PO and brown vaginal discharge. She underwent a CT of the abdomen and pelvis which showed moderate to large stool burden in the proximal colon with gaseous distention of the mid colon and a somewhat abrupt caliber change with no evidence for obstruction, volvulus or reactive bowel changes and with the most substantial gaseous distention in the left upper quadrant. It was also noted that there was mixed attenuation material within the upper vaginal canal suggestive of stool by CT. she subsequently had a transvaginal ultrasound which did not show any abnormality but at the end of the procedure that probe was noted to be covered with feces like material. Due to concern for colovaginal fistula, colorectal surgery consultation was placed for help with further evaluation and management. Due to imaging findings, GI was consulted for Crohn's fistula and concurrent Lard Maker consult for possible rectovaginal fistula involvement and further pelvic exam workup. After consult from Lard Maker, patient was found to have thick brown discharge emanating from posterior vaginal fornix. This material was noted to be secondary to discovery of a retained tampon that was placed by the patient over three week s ago. Upon removal of tampon, Lard Maker had no further concerns of fistula, as the feculent type material was noted to be old blood mixed with infected retained tampon. However, patient was tested positive by Lard Maker for bacterial vaginosis and gonorrhea, in which the patient will begin treatment. CT enterography was also obtained for further evaluation and showed focal wall thickening and adjacent fat stranding involving the mid transverse colon, concerning for colitis, could be infectious or inflammatory. No evidence of obstruction, perforation, abscess, or fistula. GI has agreed to colonoscopy to further investigate possible Crohn's fistula involvement, but no abnormalities were identified. Diet successfully advanced. Antibiotics broadened to cover mild colitis. Discharge Plan Discharge Disposition Discharge: home. * J Carlos HOGAN, Cheri: PERFORM Event Display: Patient Education/Instruction Authored Date: [id number] Inpatient Adult Discharge Instructions [address] [address] Name: MARSHALL KATHLEEN : 1980 Visit: 09/18/2022 19:04:00 Current Date: 09/21/2022 14:14 Account: [id number] Inpatient Adult Discharge Instructions We would like to thank you for allowing us to assist you with your healthcare needs. The following includes patient education materials and information regarding your injury/illness. Our entire staffstrives to provide an excellent experience for our patients and their families. PLEASE ENSURE YOU FOLLOW-UP PER THE INSTRUCTIONS BELOW! ?? YOUR OPINION IS IMPORTANT TO US! Please complete the survey you may receive by mail or email. Your feedback will be used to make improvements to the healthcare experiences of our patients and their families. Surveys are administered by [employer] ?? If further treatment with your primary care physician or another doctor is recommended, it is important for you to keep the appointment. Call your primary care physician or return to the Emergency Department immediately if your condition worsens, fails to improve, or new symptoms develop. If you need to find a doctor, you can call [facility] [employer] for a referral at [phone] or toll free at [phone]) or log in to [email or web address].. ?? You can view and manage your care through the patient portal or by using a health care abimbola of your choosing. [employer] is a website that allows you to securely view your medical information including your hospital discharge summary, office visit summaries, medications and follow-up visits. You can also request appointments, renew medications, and request access to your medical information using a health care abimbola of your choosing, or just ask a question. You can enroll at [email or web address] or register during your next office visit. You have been discharged from [facility], Patient Care Unit: SW6. If you have any questions regarding these instructions after you leave, please call us and we will be happy to assist you. [facility] Your Care Team Attending Physician Dandre BARNES, Dao Aponte Discharging Providers López BARNES, Carissa Aponte Reason for Admission ABDOMINAL PAIN Your Diagnosis Fistula, colovaginal Bacterial vaginosis Gonorrhea Retained tampon Colitis Tests Performed Below is a partial list of the tests performed during your hospitalization. You may have had other tests and procedures not included in this list. Please discuss all test results with your provider. ANTI HEP B CORE BUN CBC w/ Differential Creatinine CRP ELECTROLYTES ESR HEP. B SURF. AG Ionized Calcium Lytes Magnesium Level Phosphorus Level PT (INR) PTT Urinalysis Reflex Culture CT Enterography MRI Pelvis W+W/O Contrast Primary Care Provider Not on Staff, PCP Advance Directive Health Care Proxy on File Yes - Health Care Proxy No qualifying data available. Discharge Vitals Temperature: 98.5 DegF Height: 154 cm Pulse Rate: 72 bpm Weight: 61 kg Respiratory Rate: 18 br/min Body Mass Index:??25.72 kg/m2??High Systolic Blood Pressure: 136 mm Hg Body surface area: 1.62 Diastolic Blood Pressure:??87 mm Hg??High ?? Oxygen Saturation: 100 % ?? Studies Pending All tests and labs ordered during this hospital stay have been completed unless listed below. Please discuss all pending results with your provider listed above in these instructions. ?? Add On Lab Order BUN CBC w/ Differential COVID-19 (2019 Novel Coronavirus) PCR Calprotectin Fecal Creatinine Electrolytes (Lytes) INR (PT (INR)) Ionized Calcium Magnesium Level PTT Phosphorus Level Quantiferon TB 1 Tube What to do next Instructions From Your Doctor Discharge Orders Discharge Medications MARSHALL KATHLEEN :1980 Visit Date:09/18/2022 Medications: Please continue your medications until treatment is completed or stopped by your provider. Medications not listed below should be discontinued. Discuss any questions related to medications with your provider. What How Much When Instructions Next Dose New Acetaminophen (acetaminophen 325 mg oral tablet) 2 tab(s) Oral Every 6 hours as needed for Pain , Mild as needed New Amoxicillin-Clavulanate (amoxicillin-clavulanate 875 mg-125 mg oral tablet) 1 tab(s) Oral Twice a day Duration: 7 Days Pickup at [place] [address] 09/21 10pm New Docusate (docusate sodium 100 mg oral capsule) 1 capsule Oral Twice a day Duration: 14 Days Pickup at [place] [address] 09/21 9pm Unchanged Ethinyl Estradiol-Norgestimate (Tri-Sprintec oral tablet) 1 tab(s) Oral Daily Duration: 28 Days as directed Unchanged Levonorgestrel (levonorgestrel 1.5 mg oral tablet) 1 tab(s) Oral Once as directed Unchanged Metronidazole (metroNIDAZOLE 500 mg oral tablet) 1 tab(s) Oral Every 12 hours Duration: 7 Days Pickup at [place] [address] 09/21 7pm Unchanged Sertraline (sertraline 50 mg oral tablet) 1 tab(s) Oral Daily Duration: 30 Days 09/22 9am Pharmacy Information [facility]: [address], [place] [id number] [phone] Test Results Below is a partial list of the most recent Laboratory test results done prior to this discharge. You may have had other tests and procedures not included in this list. Please discuss all test resultswith your provider. ANTI HEP B CORE (09/19/2022) ???Hepatitis B Core Ab, Total - NEGATIVE BUN (09/21/2022) ???BUN - 5 mg/dL CBC w/ Differential (09/21/2022) ???WBC - 6.5 k/mm3???RBC - 3.37 m/mm3???Hgb - 10.6 Gm/dL???Hct - 31.9 %???MCV - 94.7 femtoliters???MCH - 31.5 pg???MCHC - 33.2 g/dL???Platelet Count - 373 k/mm3???RDW-SD - 38.4 femtoliters???MPV - 8.9 femtoliters???Nucleated RBC (Automated) - 0.0 #/100 WBC'S???Abs. NRBC - 0.0 k/mm3???Abs. Neut - 3.9 k/mm3???Abs. Lymph - 1.7 k/mm3???Abs. Logan - 0.7 k/mm3???Abs. Eo - 0.2 k/mm3???Abs. Baso - 0.0 k/mm3???Neut % - 59.5 %???Lymph % - 26.4 %???Logan % - 10.4 %???Eos % - 2.6 %???Baso % - 0.3 %???Imm Gran - 0.8 %???Abs. Imm Gran - 0.1 k/mm3 Creatinine (09/21/2022) ???Creatinine-Blood - 0.4 mg/dL???Estimated GFR Creatinine - 125 ML/MIN/1.73 M2 CRP (09/18/2022) ???C-Reactive Protein - 23.2 mg/dL ELECTROLYTES (09/20/2022) ???Sodium - 137 mmol/L???Potassium - 4.1 mmol/L???Chloride - 98 mmol/L???Bicarbonate Level - 28 mmol/L???Anion Gap - 11 ESR (09/18/2022) ???Sed Rate - 97 mm/hr HEP. B SURF. AG (09/19/2022) ???Hepatitis B Surface Antigen - NEGATIVE Ionized Calcium (09/21/2022) ???Calcium, Ionized pH Corrected - 1.15 mmol/L Lytes (09/21/2022) ???Sodium - 138 mmol/L???Potassium - 3.8 mmol/L???Chloride - 103 mmol/L???Bicarbonate Level - 25 mmol/L???Anion Gap - 10 Magnesium Level (09/21/2022) ???Magnesium - 1.8 mg/dL Phosphorus Level (09/21/2022) ???Phosphorus - 4.0 mg/dL PT (INR) (09/21/2022) ???INR - 1.1???Protime (PT) - 11.3 seconds PTT (09/21/2022) ???APTT - 28.3 seconds Urinalysis Reflex Culture (09/18/2022) ???Appear/Color, Urine - COLORLESS???Clarity - CLEAR???Specific [place], Urine - 1.005???pH, Urine - 6.0???Albumin, Urine - NEGATIVE???Glucose, Urine - NEGATIVE???Ketones, Urine - TRACE???Bilirubin, Urine - NEGATIVE???Hemoglobin, Urine - NEGATIVE???Nitrite, Urine - NEGATIVE???Leukocyte, Urine - NEGA TIVE???Urobilinogen - NORMAL???WBC's, Urine - 1 /HPF???RBC's, Urine - 1 /HPF???Bacteria - SLIGHT???Squamous Epith - 2 /HPF???Mucus - SLIGHT???Culture Indication - CULTURE NOT INDICATED Allergies (NKA means No Known Allergies) NKA Problems Active Problems??(2) Abnormal cervical Papanicolaou smear?? Depression?? Education Materials Below is the list of Educational Leaflet Providered with your Discharge Instructions. Valuables and Belongings I fully understand and agree that [facility] accepts no responsibility for all my personal property including clothing, toilet articles, radios, jewelry, dentures, hearing aids, rings, money, or any other property that is in my possession or is brought to me after admission. I understand certain valuables may be placed in a hospital safe for a short period of time. I understand that the hospital is not liable for loss or damage due to accident, fire, or other natural occurrence while said property is in the safe. I accept full responsibility for any personal property that I keep with me, and will not hold the hospital responsible in case of loss or disappearance. I acknowledge that i have been encouraged to send valuables and belongings home. ?? Review of Valuable and Belonging List: With patient Date for Pt to Sign Valuables/Belongings: 09/18/22 20:34:00 ?? Other Discharge Information ? Pulmonary Rehab Status?? Pulmonary Rehab Discharge Status?? Respiratory Rate: 18 br/min ? Common Emergency Awareness Tips IS IT A STROKE? Act FAST and Check for these signs: FACE Does the face look uneven? ARM Does one arm drift down? SPEECH Does their speech sound strange? TIME Call at any sign of stroke ?? Heart Attack Signs Chest discomfort: Most heart attacks involve discomfort in the center of the chest and lasts more than a few minutes, or goes away and comes back. It can feel like uncomfortable pressure, squeezing, fullness or pain. Discomfort in upper body: Symptoms can include pain or discomfort in one or both arms, back, neck, jaw or stomach. Shortness of breath: With or without discomfort. Other signs: Breaking out in a cold sweat, nausea, or lightheaded. Remember, MINUTES DO MATTER. If you experience any of these heart attack warning signs, call to get immediate medical attention! ?? Smoking can increase your chances of developing chronic health problems and can cause harmful effects to other family members in your house. If you smoke, you are strongly encouraged to quit. Please call [facility] [employer] [facility] at [phone] or [phone] ([phone]) or log in to [email or web address] for referrals to smoking cessation programs. ?? The National Suicide Prevention Hotline is available 12/05 if you or someone you know needs to find a reason to keep living. By calling 3-217-354-[employer] (9399) you'll be connected to a skilled, trained counselor at a crisis center in your area. INPATIENT DISCHARGE INSTRUCTIONS SIGNATURE PAGE JEFFGRAHAMKATTYMARSHALL ANDERS Location:[facility] Registration Date and Time:09/18/2022 19:04 EST Primary Care Physician: Not on Staff, PCP I MARSHALL KATHLEEN, have received the above patient education materials/instructions and have verbalized understanding. If ambulance or transport services are being used I further acknowledge being given a choice of service. ?? If you need to contact me, please call me at this number: . Patient/Vp Strategic Planning Name: Patient/Vp Strategic Planning Signature: Relationship to Patient: Witness Name/Signature: Date: CT Small bowel W contrast PO and W contrast IV * [facility] , CIS S: TRANSCRIBE Sha Panchal MD S: VERIFY Event Display: Result: Authored Date: [id number] CT Enterography INDICATION: IBD workup; Clinical Question(s): Fistula TECHNIQUE: During uneventful administration of intravenous contrast, helical CT of the abdomen and pelvis was performed. 100 cc of Omnipaque 300 was administered intravenously. Coronal and sagittal reformatted images generated. Oral Volumen contrast was administered. Weight-based protocol using automatic tube modulation was used to optimize exposure parameters. RADIATION DOSE PARAMETERS: CTDIvol Body: 6.70 mGy, DLP Body: 372 mGy*cm. COMPARISON: CT abdomen/pelvis 09/17/2022. MRI pelvis 09/19/2022. FINDINGS: Distention of small bowel loops is excellent. The small bowel wall demonstrates no thickening, abnormal enhancement or mass. The terminal ileum is unremarkable. The appendix is normal. The colon demonstrates focal wall thickening and subtle adjacent fat stranding in the mid transverse colon (axial image 134, sagittal image 109). There is no evidence of bowel stricture, phlegmon or abscess. There is no pneumoperitoneum or ascites. There is no engorgement of the vasa recta. The celiac, superior mesenteric and inferior mesenteric arteries are patent without significant stenosis. No SMV, splenic, portal or hepatic vein thrombus. Lung Bases: Mild bibasilar airspace opacity, right more than left, likely atelectasis. Normal heartsize. No pleural or pericardial effusion. Liver: Unremarkable. Gallbladder: Unremarkable. Bile ducts: No intra or extra hepatic bile duct dilation. Spleen: Normal in size and attenuation. Pancreas: Normal. Adrenal Glands: Normal. Kidneys and Ureters: No calculi or hydronephrosis. No suspicious masses. Lymph nodes: No pathologically enlarged lymph nodes. Vascular structures:The aorta is normal in caliber. Abdominal wall: Unremarkable. Pelvic Organs and Bladder: Unremarkable appearance of the bladder. Again seen is mottled gas containing material in the posterior aspect of the vagina. IUD appears appropriately positioned in the retroverted uterus. Bones: No acute findings. Chronic appearing left L3 and L4 transverse process fractures. IMPRESSION: Focal wall thickening and adjacent fat stranding involving the mid transverse colon, concerning forcolitis, could be infectious or inflammatory. No evidence of obstruction, perforation, abscess, or fistula. Heterogeneous gas-containing material in the posterior vagina. Per the electronic medical record, pelvic exam performed subsequent to the time of this CT showed that there was a tampon in the vagina,which can account for the appearance on CT. No other findings to suggest rectovaginal fistula. WSN: [id number] Ordering Physician: Miracle Worrell Dictated By: Sha Panchal MD Dictated Date/Time: 09/19/22 3:24 pm Reviewed By: Sha Panchal MD Signed By: Sha Panchal MD Signed Date/Time: 09/19/22 3:24 pm Transcribed By: ALLEN Transcribed Date/Time: 09/19/22 3:03 pm MR Pelvis WO and W contrast IV * [facility] , CIS S: TRANSCRIDao Mcguire MD: VERIFY Event Display: Result: Authored Date: MRI Pelvis W+W/O Contrast CLINICAL INDICATION: Reason: Fistula; Clinical Question(s): Other:; fistula; Order Comment: Please see Reference Text for complete list of contraindications Other: TECHNIQUE: Multiplanar, multisequence pre and post contrast MRI evaluation of the pelvis was performed. 13 cc of Clariscan gadolinium administered intravenously. COMPARISON: CT abdomen pelvis 09/17/2022. FINDINGS: Vagina: The proximal portion of the vagina is distended with T2 intermediate, T1 hypointense material, similar to that of adjacent stool in the bowel. No internal enhancement. The appearance again raises concern for a colovaginal fistula. There is generalized diffuse enhancement of the vaginal wallsuggesting mild inflammation. There is obliteration of the normal fat plane between the rectum and vagina was slightly increased enhancement of the rectal serosa. In the posterior aspect of the vaginal fornix there is a subtle focus of suspected intramural gas (218/11). A definite well-defined formed fistula tract is difficult to appreciate, though there appears to be a very subtle linear hypoenhancing area extending to the gas bubble in the vaginal wall (209/11) raising the possibility of a small fistula () UTERUS: The uterus is retroflexed. There is a IUD in place in appropriate position at the fundus. Multiple small nabothian cysts in the cervix. RIGHT OVARY: Normal in size. A few small normal-appearing follicles. LEFT OVARY: Normal in size. Single dominant follicle. No suspicious lesion. PELVIS: No free fluid in the pelvis. BLADDER: Distended but otherwise normal. LOWER GI TRACT: Suspected rectovaginal fistula as above. Small bowel loops and remainder of the visualized colon are normal. LYMPH NODES: No enlarged lymph nodes. VESSELS: Patent pelvic vasculature. No thrombosis. BONES AND SOFT TISSUES: No acute abnormality. IMPRESSION: 1. Abnormal enhancement of the vaginal mucosa and rectal serosa with a focus of gas in the vaginal wall along the posterior fornix. While a definite formed fistula is difficult to appreciate there theresa linear area of hypoenhancement extending to the focus of gas from the rectum to the vaginal wall raising suspicion for a small rectovaginal fistula. 2. Heterogeneous debris within the superior vagina, similar to the bowel contents is not significantly changed from 09/17/2022. WSN: [id number] Ordering Physician: Ilana Lakhani Dictated By: Dao Del Cid MD Dictated Date/Time: 09/19/22 8:13 am Reviewed By: Dao Del Cid MD Signed By: Dao Del Cid MD Signed Date/Time: 09/19/22 8:13 am Transcribed By: ALLEN Transcribed Date/Time: 09/19/22 7:52 am Patient Care team information Care Team Personnel Name: Not on Staff, PCP Position: [facility] Physician (General Medicine) Member Role: PCP Care Team Related Persons Name: BEST DALY Address: home [address] [place] [id number]
--- NOTE | 2024-06-15 23:55 | ED_ITS ---
HPI - Wound/Laceration General Chief Complaint: Wound/Laceration Stated Complaint: R ear laceration Time Seen by Provider: 06/15/24 23:15 Source: patient Mode of arrival: ambulatory Limitations: no limitations History of Present Illness HPI narrative: Patient is a 44-year-old female presents emergency department for evaluation. She tripped resulting in a fall striking her head onto a corner of a wall. She sustained a laceration to the right auricle. She denies any associated head pain, loss of consciousness, inner ear pain, change in hearing. No active bleeding. Denies any neck pain. Believes date of last tetanus vaccination was more than 5 years ago. Related Data Previous Rx's ?Medication ?Instructions ?Recorded diazepam 5 mg tablet (Valium) 5 mg PO BEDTIME PRN muscle spasm 08/23/21 #10 tabs naproxen 500 mg tablet 500 mg PO BID #20 tabs 08/23/21 cyclobenzaprine 10 mg tablet 10 mg PO BEDTIME PRN muscle spasm 09/12/22 #7 tabs loperamide 2 mg capsule 2 mg PO Q6H PRN loose stool #14 09/12/22 caps ondansetron 4 mg disintegrating 4 mg PO Q6H PRN nausea and 09/12/22 tablet vomiting #14 tabs Allergies Allergy/AdvReac Type Severity Reaction Status Date / Time No Known Allergies Allergy Unknown Verified 06/15/24 22:50 Review of Systems Review of Systems: Yes all other systems are reviewed and are negative [facility] Past Medical History Medical History Cervical radiculopathy at C5 Social History Social History Alcohol intake: current Alcohol intake frequency: 3 or more drinks per day Alcohol type: wine Patient Tobacco Use Status: Never used Tobacco Advance Directives: No Advance Directives Information Provided: No Do you have a plan to hurt others: No Plan Current occupational status: employed Physical Exam Vital Signs: Vital Signs: Last Vital Signs Temp 98.1 F 06/16/24 00:02 Pulse 77 06/16/24 00:02 Resp 16 06/16/24 00:02 BP 136/94 H 06/16/24 00:02 Pulse Ox 99 06/16/24 00:02 O2 Del Method Room Air 06/16/24 00:02 BMI result Body Mass Index 25.3 Appearance: Alert.?Oriented to person, place and time. No acute distress.?Normal affect. Eyes: Pupils equal, round and reactive to light.? EOMI. No nystagmus. ENT: Pharynx normal.??Right mid auricle horizontal linear laceration 0.5 cm, no active bleeding, extends to the edge of the german. TM normal Neck: Normal inspection.? Neck supple.?? CVS: Heart sounds normal. Normal heart rate and rhythm.? Pulses normal.?? Respiratory: No respiratory distress.? Lung sounds clear to auscultation bilaterally? Skin: Skin warm and dry.? Normal skin color.? Extremities: No lower extremity edema. Neuro: Moves all extremities spontaneously. Sensation intact bilaterally. CN II- XII intact. No focal neuro deficits. Ambulates with normal steady gait. Medical Decision Making Medical Decision Making MDM Narrative: Patient is a 44-year-old female who presents emergency department for evaluation of laceration to the right work will accidental as per HPI on physical exam portion of this note. Repair under aseptic technique as per procedural portion of this note and tolerated well. Instructed for suture removal in 7 days, review worrisome signs and symptoms including signs of infection to monitor for. She reports a mild head strike there was no loss of consciousness she has no focal neurological deficits on evaluation. Would defer CT of the head/cervical spine at this time as a low clinical suspicion for ICH, fracture, subluxation. Tdap was updated today. Differential Diagnosis Differential Diagnoses: The differential diagnosis associated with the presentation includes (See narrative above) External Record Review External record reviewed: Outpatient record Tests considered The following testing was considered but not selected: CT head deferred, see narrative above Prescription Management I considered prescription management with: Pain Medication (Acetaminophen/ibuprofen) Procedures Laceration Laceration 1: Site: other (Your) Side (If applicable): right Size (cm): 0.5 Description: linear Depth: simple, single layer Local Anesthetic: lidocaine 1% Amount of anesthesia used (mL): 5 Pre-repair: wound explored, irrigated extensively and deep structures intact Skin layer closed with: nylon Size (cm): 5-0 Number of sutures: 3 Technique: simple, interrupted Nerve Block Nerve Block 1: Time out performed: Yes Local Anesthetic: lidocaine 1% Amount of anesthesia used (mL): 5 Side: right Nerve Blocks: other (Auricular) Procedure Successful: Yes Patient Tolerated Procedure: well Complications: none Discharge Plan Discharge Clinical Impression: Laceration of auricle of ear Qualifiers: Encounter type: initial encounter Laterality: right Qualified Code(s): S01.311A - Laceration without foreign body of right ear, initial encounter Patient Disposition: Home, Self-Care Instructions: Laceration (ED) Additional Instructions: You may clean the area gently slowly with warm water and mild non scented soap over the next 2 days, dry the area afterwards, otherwise should remain dry until removed. Avoid prolonged soaking in water such as swimming, soaking in the bath. 3 Sutures will need to be removed in 7 days, you may return back to emergency department or follow-up with your primary care doctor for removal Tetanus vaccine was updated today Return with any new or worsening symptoms or concerns such as increasing pain, redness, swelling, pus-like discharge, fevers or chills. Prescriptions: No Action diazepam [Valium] 5 mg tablet 5 mg PO BEDTIME PRN (Reason: muscle spasm) Qty: 10 0RF naproxen 500 mg tablet 500 mg PO BID Qty: 20 0RF ondansetron 4 mg tablet,disintegrating 4 mg PO Q6H PRN (Reason: nausea and vomiting) Qty: 14 0RF loperamide 2 mg capsule 2 mg PO Q6H PRN (Reason: loose stool) Qty: 14 0RF cyclobenzaprine 10 mg tablet 10 mg PO BEDTIME PRN (Reason: muscle spasm) Qty: 7 0RF Referrals: Terrance Stephenson MD [Primary Care Provider] - Print Language: Syriac
[2024-06-16 00:02] VITALS: BP 136/94; PULSE 77; RESP 16; TEMP 36.7; O2SAT 99
[2024-06-16] MEDS: Lidocaine HCl 1 % MPF 5 ML VIAL 10 ML SUBCUT (01:08)
[2024-06-16] MEDS: Diphth,Pertus(ACell),Tet Adult 0.5 ML SYRINGE IM (01:09)
[2024-06-16 02:13] VITALS: BP 132/78; PULSE 76; RESP 16; TEMP 36.7
== END 2024-06-16 01:15 | disposition home or self-care (01) ==
PROVIDERS: Emergency Provider Internal Medicine; PCP Internal Medicine
DX: S01.311A Laceration without foreign body of right ear, initial encounter (principal); Y29.XXXA Contact with blunt object, undetermined intent, initial encounter; Y93.89 Activity, other specified; Y92.89 Other specified places as the place of occurrence of the external cause; Y99.8 Other external cause status; Z23 Encounter for immunization
CPT/HCPCS: 12011; 90471; 90715; 99284

== ENCOUNTER 2024-06-23 13:32 | Emergency (ER) | payer BC, SELFPAY ==
[2024-06-23 13:39] VITALS: BMI 25.5
--- NOTE | 2024-06-23 13:39 | ED_ITS ---
HPI - General Adult General Stated complaint: stitch removal Time Seen by Provider: 06/23/24 13:36 Source: patient Mode of arrival: ambulatory History of Present Illness ED Provider: alon MONTENEGRO narrative: Patient is a 44-year-old female presenting to the emergency department for removal of sutures to right ear placed in this emergency department on 06/15. Denies any new redness, warmth, swelling or purulent drainage. Denies fevers. Attempted to have sutures removed by PCP but was unable to get timely appointment. MD complaint: suture removal Onset (ago): day(s) Associated symptoms: denies other symptoms Related Data Previous Rx's ?Medication ?Instructions ?Recorded diazepam 5 mg tablet (Valium) 5 mg PO BEDTIME PRN muscle spasm 08/23/21 #10 tabs naproxen 500 mg tablet 500 mg PO BID #20 tabs 08/23/21 cyclobenzaprine 10 mg tablet 10 mg PO BEDTIME PRN muscle spasm 09/12/22 #7 tabs loperamide 2 mg capsule 2 mg PO Q6H PRN loose stool #14 09/12/22 caps ondansetron 4 mg disintegrating 4 mg PO Q6H PRN nausea and 09/12/22 tablet vomiting #14 tabs Allergies Allergy/AdvReac Type Severity Reaction Status Date / Time No Known Allergies Allergy Unknown Verified 06/23/24 13:40 Review of Systems Review of Systems: as per hPI Yes all other systems are reviewed and are negative Constitutional: Constitutional: Reports as per HPI [facility] Past Medical History Medical History Cervical radiculopathy at C5 Social History Social History Alcohol intake: current Alcohol intake frequency: 3 or more drinks per day Alcohol type: wine Patient Tobacco Use Status: Never used Tobacco Current occupational status: employed Physical Exam ED Vital Signs: Vital signs have been reviewed and appear to be correct. Blood pressure normal. Heart rate normal. Respiratory rate normal. Temperature normal. Oxygen saturation normal. Const General: cooperative, healthy appearing and no acute distress Orientation/consciousness: oriented to person, oriented to place, oriented to time and patient oriented x3 Limitations: no limitations HENMT Head: Yes normocephalic and Yes atraumatic Ears: external ears normal and other (3 sutures to right auricle, wound appears well-healed) General nose exam: Normal external nose present Face and sinus: Yes face symmetric Mouth: oropharynx normal and moist mucous membranes Throat: Yes uvula midline Eyes Pupils: Equal, round and reactive pupils present Neck Neck: Yes normal visual inspection and Yes supple Resp Effort & Inspection: normal respiratory effort and able to speak in complete sentences Auscultation: clear to auscultation bilaterally Cardio Rate: regular rate Rhythm: regular rhythm Heart sounds: S1 normal heart sound present and S2 normal heart sound present Skin General skin exam: elasticity normal and turgor normal Neuro General: oriented to person, oriented to place, oriented to time, patient oriented x3, moves all extremities, no focal motor deficits and CN's II-XI intact bilaterally Cranial nerves: Yes Equal, round and reactive pupils present Cognition (Neuro): normal cognition Extrem General: Yes full ROM, Yes no pedal edema and Yes no calf tenderness Psych Mental Status: mental status grossly normal Affect: normal affect Thought process: Normal thought process present Medical Decision Making Medical Decision Making [facility] Narrative: Patient is a 44-year-old female presenting to the emergency department for removal of sutures to right ear placed in this emergency department on 06/15. On exam patient is awake, A+Ox3, VS WNL, afebrile, normal neurological exam without focal deficits, physical exam findings as above. Given reported symptoms and physical exam findings, initial differential includes suture removal, cellulitis. 3 sutures removed from right auricle without difficulty with success. Ongoing wound care and return precautions discussed. Patient verbalized understanding of and agreement with plan. Differential Diagnosis Differential Diagnoses: The differential diagnosis associated with the presentation includes as per [facility] External Record Review External record reviewed: Inpatient record, Office record and Outpatient record Discharge Plan Discharge Clinical Impression: Encounter for removal of sutures Patient Disposition: Home, Self-Care Instructions: Stitches Removal (ED) Additional Instructions: You were seen in the emergency department today for suture removal. Your wound appears to be healing well. Please keep the area surrounding the wound clean and dry and cover with Band-Aid until fully healed. Do not submerge in water until fully healed. Please continue to assess the wound daily. Keep the area out of direct sunlight for the next 6 months to help prevent scarring. If you develop fever, redness, swelling at the site of your laceration, or thick yellow drainage please come back to the ER for a wound check. Prescriptions: No Action diazepam [Valium] 5 mg tablet 5 mg PO BEDTIME PRN (Reason: muscle spasm) Qty: 10 0RF naproxen 500 mg tablet 500 mg PO BID Qty: 20 0RF ondansetron 4 mg tablet,disintegrating 4 mg PO Q6H PRN (Reason: nausea and vomiting) Qty: 14 0RF loperamide 2 mg capsule 2 mg PO Q6H PRN (Reason: loose stool) Qty: 14 0RF cyclobenzaprine 10 mg tablet 10 mg PO BEDTIME PRN (Reason: muscle spasm) Qty: 7 0RF Print Language: Danish
[2024-06-23 13:40] VITALS: BP 152/96; PULSE 80; RESP 14; TEMP 36.9; O2SAT 100
[2024-06-23 13:41] VITALS: BP 152/96; PULSE 80; RESP 18; TEMP 36.9; O2SAT 100
[2024-06-23 13:59] VITALS: BP 152/96; PULSE 80; RESP 18; TEMP 36.9; O2SAT 100
== END 2024-06-23 14:00 | disposition home or self-care (01) ==
PROVIDERS: Emergency Provider Emergency Medicine; PCP Internal Medicine
DX: Z48.02 Encounter for removal of sutures (principal)
CPT/HCPCS: 99283